=== PATIENT | male | born 1965 | race Caucasian/White ===

== ENCOUNTER 2019-08-15 08:02 | Day surgery (SDC) | payer MEDICAID ==
[~2019-08-15] VITALS: Ht 177.8 cm; Wt 75.6 kg
[2019-08-15 08:17] VITALS: BP 115/75
[2019-08-15] MEDS ORDERED: FURO-150 PO (08:34)
[2019-08-15] MEDS ORDERED: POTA8CAP20 PO (08:34)
[2019-08-15] MEDS ORDERED: PANT-47 PO (08:34)
[2019-08-15] MEDS ORDERED: MIDO5TAB4 PO (08:34)
[2019-08-15] MEDS ORDERED: SPIR25TA5 PO (08:34)
[2019-08-15] MEDS ORDERED: normal saline 1000ml 1,000 ML IV PRN (08:40)
[2019-08-15] MEDS ORDERED: albumin 25% 100mL bottle x 1 IV PRN (08:40)
[2019-08-15 13:57] VITALS: BP 106/75
== END 2019-08-15 11:02 | disposition home or self-care (01) ==
LOC: SSTAY O 08:02
PROVIDERS: ATTEND Radiology Vascular & Interventional Radiology
DX: K70.11 Alcoholic hepatitis with ascites (principal); K74.60 Unspecified cirrhosis of liver; K21.9 Gastro-esophageal reflux disease without esophagitis; Z91.030 Bee allergy status; Z79.899 Other long term (current) drug therapy; Z98.52 Vasectomy status
CPT/HCPCS: 49083; C1729; P9047

== ENCOUNTER 2019-08-29 08:22 | Day surgery (SDC) | payer MEDICAID ==
[~2019-08-29] VITALS: Ht 177.8 cm; Wt 69.0 kg
[~2019-08-29 08:22] MED LIST: FURO-150 PO; MIDO5TAB4 PO; PANT-47 PO; POTA8CAP20 PO; SPIR25TA5 PO
[2019-08-29] MEDS ORDERED: albumin 25% 100mL bottle x 1 IV PRN (08:50)
[2019-08-29] MEDS ORDERED: normal saline 1000ml 1,000 ML IV PRN (08:50)
[2019-08-29 08:54] VITALS: BP 99/66
== END 2019-08-29 09:20 | disposition home or self-care (01) ==
LOC: SSTAY O 08:22
PROVIDERS: ATTEND Radiology Diagnostic Radiology
DX: K70.11 Alcoholic hepatitis with ascites (principal); K21.9 Gastro-esophageal reflux disease without esophagitis; K74.60 Unspecified cirrhosis of liver; Z98.52 Vasectomy status; Z79.899 Other long term (current) drug therapy
CPT/HCPCS: 76705

== ENCOUNTER 2019-09-08 11:11 | Emergency (ER) | payer MEDICAID ==
[~2019-09-08] VITALS: Ht 180.3 cm; Wt 69.1 kg
[2019-09-08] MEDS ORDERED: normal saline 1000ML IV soln IVB ONE (12:25)
[2019-09-08 12:50] LABS: BASOPHILS # (AUTO) 0.2 X10'3 (0-0.2); EOSINOPHILS % (AUTO) 0.1 % (0-6); HEMATOCRIT 35.8 % (42.0-52.0); HEMOGLOBIN 11.8 g/dl (14.0-17.9); LYMPHOCYTES # (AUTO) 1.6 X10'3 (1.1-4.8); LYMPHOCYTES % (AUTO) 9.6 % (21-51); MEAN CORPUSCULAR HEMOGLOBIN 27.8 PG (27.0-31.0); MEAN CORPUSCULAR HGB CONC 33.1 g/dL (33.0-36.5); MEAN CORPUSCULAR VOLUME 84.1 FL (78-98); MONOCYTES # (AUTO) 1.2 X10'3 (0-0.9); MONOCYTES % (AUTO) 6.8 % (2-12); NEUTROPHILS % (AUTO) 82.5 % (42-75); PLATELET COUNT 551 X10'3 (140-440); RED BLOOD COUNT 4.25 X10'6 (4.70-6.10); RED CELL DISTRIBUTION WIDTH 15.9 % (11.5-14.5)
[2019-09-08 13:02] VITALS: BP 106/73
[2019-09-08 13:05] LABS: PARTIAL THROMBOPLASTIN TIME 32 SECONDS (22-32)
[2019-09-08 13:06] LABS: ALANINE AMINOTRANSFERASE 24 U/L (12-78); ALBUMIN 3.4 G/DL (3.4-5.0); ALBUMIN/GLOBULIN RATIO 0.6 (1.1-1.5); ALKALINE PHOSPHATASE 184 IU/L (46-116); ANION GAP 10 (8-16); ASPARTATE AMINO TRANSFERASE 39 U/L (10-37); BILIRUBIN,TOTAL 0.8 MG/DL (0.1-1.0); BLOOD UREA NITROGEN 28 MG/DL (7-18); BUN/CREATININE RATIO 20.4 (5.4-32.0); CALCIUM 10.9 MG/DL (8.5-10.1); CHLORIDE 104 MMOL/L (99-107); CREATININE 1.37 MG/DL (0.60-1.10); GLUCOSE 117 MG/DL (70-104); POTASSIUM 3.4 MMOL/L (3.5-5.1); SODIUM 141 MMOL/L (135-145); TOTAL CARBON DIOXIDE 26.8 MMOL/L (24-32); eGFR 54 ML/MIN
[2019-09-08] MEDS ORDERED: LIDOcaine Viscous 15ml cup ONE (13:06)
[2019-09-08] MEDS ORDERED: MIDAZolam 5mg/5ml vial ONE (13:06)
[2019-09-08] MEDS ORDERED: fentaNYL/PF 50MCG/1 ML 2ML syringe ONE (13:06)
--- NOTE | 2019-09-08 13:10 | NUR ---
Pt. in GI Lab
[2019-09-08 13:28] VITALS: BP 106/73
[2019-09-08 13:38] VITALS: BP 121/72
[2019-09-08 13:48] VITALS: BP 107/72
--- NOTE | 2019-09-08 13:57 | NUR ---
Pt. back from GI Lab
[2019-09-08 13:58] VITALS: BP 106/68
[2019-09-08] MEDS ORDERED: PANT20TA3 PO (14:18)
[2019-09-08 15:30] VITALS: BP 117/73
== END 2019-09-08 15:28 | disposition home or self-care (01) ==
LOC: ER 11:12
DX: T18.128A Food in esophagus causing other injury, initial encounter (principal); Z79.899 Other long term (current) drug therapy; Y92.89 Other specified places as the place of occurrence of the external cause
CPT/HCPCS: 36415; 43247; 80053; 85025; 85610; 85730; 99152; 99285; C1769; J2250; J3010; J7030; A4620

== ENCOUNTER 2019-10-28 07:25 | Day surgery (SDC) | payer MEDICAID ==
[~2019-10-28] VITALS: Ht 177.8 cm; Wt 77.1 kg
[~2019-10-28 07:25] MED LIST changes: +PANT20TA3 PO
[2019-10-28] MEDS ORDERED: normal saline 1000ml 1,000 ML IV SCH (07:50)
[2019-10-28 08:00] VITALS: BP 128/85
[2019-10-28 09:20] VITALS: BP 127/86
[2019-10-28 09:30] VITALS: BP 142/85
[2019-10-28 09:45] VITALS: BP 141/85
[2019-10-28 09:54] VITALS: BP 112/82
== END 2019-10-28 10:00 | disposition home or self-care (01) ==
LOC: U 07:25 → MED 3N 07:25 → U 10:00
PROVIDERS: ATTEND Radiology Diagnostic Radiology
DX: K70.31 Alcoholic cirrhosis of liver with ascites (principal); K70.11 Alcoholic hepatitis with ascites; K21.9 Gastro-esophageal reflux disease without esophagitis; Z98.52 Vasectomy status; Z79.899 Other long term (current) drug therapy
CPT/HCPCS: 49083; C1729

== ENCOUNTER 2019-11-22 08:27 | Day surgery (SDC) | payer MEDICAID ==
[~2019-11-22] VITALS: Ht 177.8 cm; Wt 77.3 kg
[~2019-11-22 08:27] MED LIST changes: -PANT20TA3 PO
[2019-11-22 08:35] VITALS: BP 123/77
[2019-11-22] MEDS ORDERED: fentaNYL/PF 50MCG/1 ML 2ML syringe ONE (09:03)
[2019-11-22] MEDS ORDERED: MIDAZolam 5mg/5ml vial ONE (09:03)
[2019-11-22] MEDS ORDERED: LIDOcaine Viscous 15ml cup ONE (09:04)
[2019-11-22 10:00] VITALS: BP 132/97
[2019-11-22 10:10] VITALS: BP 135/87
[2019-11-22 10:20] VITALS: BP 133/87
== END 2019-11-22 10:42 | disposition home or self-care (01) ==
LOC: GI LAB 08:27
PROVIDERS: ATTEND Internal Medicine Gastroenterology
DX: I85.00 Esophageal varices without bleeding (principal); K76.6 Portal hypertension; K31.89 Other diseases of stomach and duodenum; K44.9 Diaphragmatic hernia without obstruction or gangrene
CPT/HCPCS: 43244; 99152; J2250; J3010; J7040; A4620

== ENCOUNTER 2020-03-05 08:03 | Day surgery (SDC) | payer MEDICAID ==
[~2020-03-05] VITALS: Ht 179.1 cm; Wt 84.1 kg
[2020-03-05 08:10] VITALS: BP 123/82
[2020-03-05] MEDS ORDERED: LIDOcaine Viscous 15ml cup ONE (08:13)
[2020-03-05] MEDS ORDERED: fentaNYL/PF 50MCG/1 ML 2ML syringe ONE (08:13)
[2020-03-05] MEDS ORDERED: MIDAZolam 5mg/5ml vial ONE (08:13)
[2020-03-05 09:15] VITALS: BP 107/80
[2020-03-05 09:25] VITALS: BP 114/78
[2020-03-05 09:35] VITALS: BP 123/76
[2020-03-05 09:45] VITALS: BP 118/72
== END 2020-03-05 10:05 | disposition home or self-care (01) ==
LOC: GI LAB 08:03
PROVIDERS: ATTEND Internal Medicine Gastroenterology
DX: K22.8 Other specified diseases of esophagus (principal); K44.9 Diaphragmatic hernia without obstruction or gangrene; K76.6 Portal hypertension; K31.89 Other diseases of stomach and duodenum
CPT/HCPCS: 43235; 99152; J2250; J3010; J7040; A4620

== ENCOUNTER 2020-07-01 08:57 | Inpatient (IN) | payer MEDICAID ==
[~2020-07-01] VITALS: Ht 179.1 cm; Wt 96.7 kg
[2020-07-01] VITALS (16 sets, daily range): BP systolic 88–140; BP diastolic 68–106
[2020-07-01] MEDS ORDERED: morphine 4 MG/ML inj SYRINge IV ONE (09:10)
[2020-07-01] MEDS ORDERED: ondansetron/PF 4mg/2ml inj IV ONE (09:10)
[2020-07-01] MEDS ORDERED: normal saline 1000ML IV soln IV ONE (09:10)
[2020-07-01] MEDS ORDERED: piperacillin/tazo 3.375gm/50ml 50 ML IV ONE (09:10)
[2020-07-01 09:49] LABS: BASOPHILS # (AUTO) 0.1 X10'3 (0-0.2); BASOPHILS % (AUTO) 0.4 % (0-1); EOSINOPHILS % (AUTO) 0.1 % (0-6); HEMATOCRIT 41.7 % (42.0-52.0); LYMPHOCYTES # (AUTO) 1.3 X10'3 (1.1-4.8); LYMPHOCYTES % (AUTO) 8.1 % (21-51); MEAN CORPUSCULAR HEMOGLOBIN 31.8 PG (27.0-31.0); MEAN CORPUSCULAR HGB CONC 33.6 g/dL (33.0-36.5); MEAN CORPUSCULAR VOLUME 94.6 FL (78-98); MEAN PLATELET VOLUME 7.2 FL (7.4-10.4); MONOCYTES # (AUTO) 1.5 X10'3 (0-0.9); MONOCYTES % (AUTO) 9.7 % (2-12); NEUTROPHILS # (AUTO) 12.8 X10'3 (1.8-7.7); NEUTROPHILS % (AUTO) 81.7 % (42-75); PLATELET COUNT 471 X10'3 (140-440); RED BLOOD COUNT 4.41 X10'6 (4.70-6.10); RED CELL DISTRIBUTION WIDTH 16.2 % (11.5-14.5); WHITE BLOOD COUNT 15.6 X10'3 (4.5-11.0)
[2020-07-01 10:05] LABS: ALANINE AMINOTRANSFERASE 25 U/L (12-78); ALBUMIN 3.1 G/DL (3.4-5.0); ALBUMIN/GLOBULIN RATIO 0.6 (1.1-1.5); ALKALINE PHOSPHATASE 287 IU/L (46-116); ANION GAP 15 (8-16); ASPARTATE AMINO TRANSFERASE 29 U/L (10-37); BILIRUBIN,TOTAL 1.7 MG/DL (0.1-1.0); BLOOD UREA NITROGEN 18 MG/DL (7-18); BUN/CREATININE RATIO 13.5 (5.4-32.0); CALCIUM 9.3 MG/DL (8.5-10.1); CHLORIDE 97 MMOL/L (99-107); CREATININE 1.33 MG/DL (0.60-1.10); GLUCOSE 144 MG/DL (70-104); POTASSIUM 3.8 MMOL/L (3.5-5.1); SODIUM 133 MMOL/L (135-145); TOTAL CARBON DIOXIDE 21.5 MMOL/L (24-32); TOTAL PROTEIN 8.1 G/DL (6.4-8.2); eGFR 56 ML/MIN
--- NOTE | 2020-07-01 10:49 | NUR ---
re-wet abdominal dressing
[2020-07-01] MEDS ORDERED: potassium Cl 20 mEq SR tablet PO PRN ×2 (10:55)
[2020-07-01] MEDS ORDERED: ondansetron/PF 4mg/2ml inj IV PRN ×2 (10:55→12:20)
[2020-07-01] MEDS ORDERED: HYDROmorphone inj. 0.5 MG/0.5 ML DISP.SYRIN IV PRN (10:55)
[2020-07-01] MEDS ORDERED: potassium Cl 40MEQ/1/2NS 520ml 520 ML IV PRN ×2 (10:55)
[2020-07-01] MEDS ORDERED: magnesium 4gm in 100ml NS 100 ML IV PRN (10:55)
[2020-07-01] MEDS ORDERED: magnesium Cl slow-release 64mg tablet PO PRN (10:55)
[2020-07-01] MEDS ORDERED: morphine 2 MG/ML inj. syringe IV PRN ×2 (10:55→12:20)
[2020-07-01] MEDS ORDERED: acetaminophen 325mg tablet PO PRN (10:55)
[2020-07-01] MEDS ORDERED: magnesium 2GM in 50ml NS 50 ML IV PRN (10:55)
[2020-07-01] MEDS: normal saline 1000ml 1,000 ML IV SCH ×2 (11:46→23:45)
[2020-07-01] MEDS ORDERED: meperidine/PF 25mg/ml syringe IV PRN ×3 (12:20)
[2020-07-01] MEDS ORDERED: morphine 4 MG/ML inj SYRINge IV PRN (12:20)
[2020-07-01] MEDS ORDERED: ringers solution, lacted 1,000 ML IV SCH (12:20)
[2020-07-01] MEDS ORDERED: proCHLORperazine 10 MG/2 ml inj IV PRN (12:20)
[2020-07-01] MEDS ORDERED: MIDO10TA PO (12:34)
[2020-07-01] MEDS ORDERED: FURO20TA4 PO (12:34)
[2020-07-01] MEDS ORDERED: LORA10TA7 PO (12:34)
[2020-07-01] MEDS ORDERED: FLUT16SP26 BOTHNARES (12:34)
[2020-07-01] MEDS ORDERED: OMEP-50 PO (12:34)
[2020-07-01] MEDS ORDERED: sevoflurane 250ml liquid IH ONE (12:42)
[2020-07-01] MEDS ORDERED: fentaNYL/PF 50MCG/1 ML 2ML syringe ONE (12:43)
[2020-07-01] MEDS ORDERED: midazolam 2 mg/2 ml injection ONE (12:43)
[2020-07-01] MEDS ORDERED: propofol inj 20 ML IV ONE (12:43)
[2020-07-01] MEDS ORDERED: rocuronium 10mg/ml inj IV ONE (12:55)
[2020-07-01] MEDS ORDERED: ceFAZolin 1000mg inj ONE ×2 (12:56)
[2020-07-01] MEDS ORDERED: albumin (Human) 5% 250ml 250 ML IV ONE ×2 (13:17→13:26)
[2020-07-01] MEDS ORDERED: bacitracin 15gm ointment TP ONE (13:33)
[2020-07-01] MEDS ORDERED: neostigmine methylsulfate 1 MG/ML 10ml vial ONE (13:35)
[2020-07-01] MEDS ORDERED: glycopyrrolate 0.2mg/ml inj ONE (13:35)
--- NOTE | 2020-07-01 13:51 | NUR ---
Received from OR via SURGICAL BED , accompanied by Anesthesiologist ELISABETH and report given by Anesthesiolgist. PATIENT WITH 18G PIV IN LEFT UE RUNNING LR AT 100. ABDOMINAL BINDER PRESENT, LORETO TO RIGHT SIDE ABDOMEN. SCDS DONNED. ASCITIES FLUID COMING OUT FROM LORETO. MD HERRERA AWARE- SMALL LORETO SWAPPED OUT TO LARGER BULB VIA MD REQUEST. 10L MASK ON WITH 100% SATURATIONS. Addendum: 07/01/20 at 1402 by Tad Acevedo - MAIK PLEITEZ Amended: Links added.
--- NOTE | 2020-07-01 14:46 | NUR ---
PATIENT TAKEN TO WITH ALL BELONGINGS AND HOOKED UP TO MONITORS IN ROOM AND REPORT GIVEN TO RN WHO HAS TAKEN OVER PATIENT CARE. LARGE LORETO DRAIN INTACT AND DRAINING YELLOW TINTED ASCITIES FLUID. AWARE OF SAID DRAINAGE. VSS. PAIN AT A TOLERABLE LEVEL. ABDOMINAL BINDER INTACT WITH NO DRAINAGE PRESENT EXCEPT THAT OF THE LORETO DRAIN. RN AWARE. VSS. BED LOW AND CALL LIGHT PRESENT. Addendum: 07/01/20 at 1501 by Tad Chao RN, RN Amended: Links added.
[2020-07-01] MEDS ORDERED: ipratropium/albuterol 3ml nebule NEB PRN ×2 (15:05)
[2020-07-01] MEDS: HYDROcodone/acetaminophen 10/325mg tab PO PRN ×2 (17:18→23:44)
--- NOTE | 2020-07-01 18:52 | NUR ---
Patient in room [facility] 356. I have received report from MAIK Jorgensen and had the opportunity to ask questions and assume patient care.
--- NOTE | 2020-07-01 19:10 | NUR ---
pt alert and oriented no complaints. States feeling better minimal pain, abd binder inp place. robi lower abd fiordaliza logan under dressing, large jonh RLQ no drainage at this time, was emptied by nurseDebbie logan. b/p 92/77 Addendum: 07/01/20 at 1911 by Cristopher River RN Amended: Links added.
--- NOTE | 2020-07-01 19:21 | NUR ---
Gave report to Brain PLEITEZ.
[2020-07-01] MEDS: docusate sod 100mg capsule PO SCH (19:43)
[2020-07-01] MEDS: K and/or MAG REPLACEMENT MC SCH (20:00)
[2020-07-02 00:59] VITALS: BP 94/67
[2020-07-02 04:00] VITALS: BP 126/70
[2020-07-02 06:23] LABS: ALBUMIN 2.6 G/DL (3.4-5.0); ANION GAP 10 (8-16); BASOPHILS % (AUTO) 0.1 % (0-1); BLOOD UREA NITROGEN 12 MG/DL (7-18); BUN/CREATININE RATIO 10.3 (5.4-32.0); CHLORIDE 99 MMOL/L (99-107); CREATININE 1.17 MG/DL (0.60-1.10); EOSINOPHILS % (AUTO) 0 % (0-6); GLUCOSE 127 MG/DL (70-104); HEMATOCRIT 35.8 % (42.0-52.0); HEMOGLOBIN 11.9 g/dl (14.0-17.9); LYMPHOCYTES # (AUTO) 1.3 X10'3 (1.1-4.8); LYMPHOCYTES % (AUTO) 8.4 % (21-51); MAGNESIUM 1.7 MG/DL (1.5-2.4); MEAN CORPUSCULAR HEMOGLOBIN 31.7 PG (27.0-31.0); MEAN CORPUSCULAR HGB CONC 33.2 g/dL (33.0-36.5); MEAN CORPUSCULAR VOLUME 95.3 FL (78-98); MEAN PLATELET VOLUME 7.6 FL (7.4-10.4); MONOCYTES # (AUTO) 1.6 X10'3 (0-0.9); MONOCYTES % (AUTO) 10.3 % (2-12); NEUTROPHILS # (AUTO) 12.8 X10'3 (1.8-7.7); NEUTROPHILS % (AUTO) 81.2 % (42-75); PLATELET COUNT 426 X10'3 (140-440); POTASSIUM 4.2 MMOL/L (3.5-5.1); RED BLOOD COUNT 3.76 X10'6 (4.70-6.10); SODIUM 132 MMOL/L (135-145); TOTAL CARBON DIOXIDE 22.7 MMOL/L (24-32); WHITE BLOOD COUNT 15.7 X10'3 (4.5-11.0); eGFR 64 ML/MIN
--- NOTE | 2020-07-02 06:46 | NUR ---
Problems reprioritized. Patient report given, questions answered & plan of care reviewed with MAIK Park.
--- NOTE | 2020-07-02 07:03 | NUR ---
Patient in room [facility] 356. I have received report from Brain PLEITEZ and had the opportunity to ask questions and assume patient care.
[2020-07-02] MEDS ORDERED: pantoprazole 40 MG vial IV SCH (08:00)
[2020-07-02] MEDS ORDERED: furosemide 10 MG/1 ML 10ml inj IV SCH (08:00)
[2020-07-02] MEDS: K and/or MAG REPLACEMENT MC SCH (08:00)
[2020-07-02] MEDS: docusate sod 100mg capsule PO SCH (08:08)
--- NOTE | 2020-07-02 14:30 | NUR ---
Pt Dc to home with . Pt is A & O x4 and in no apparent distress. Pt verbalizes understanding of all DC orders. pt anxious to go home, distracted and looking at the clock while DC teachings. Pt states "yeah I understand". Pt educated on emptying his LORETO drain and hygienic process of caring for his wound. IV removed intact. Wound dressing D & I. Pt left in such a hurry left wound dressing supplies in the room. Pt educated on not showering for until 48 hrs after surgery and the importance of following up with doctors. Pt packed and carried his personal belongings home with him. Family member pick pt up. Pt wheeled to the front where he was picked up.
== END 2020-07-02 14:15 | disposition home or self-care (01) | DRG 227 ==
LOC: ER 08:58 → ED HOLD 10:55 → SUR 3N 15:03
PROVIDERS: ADMIT Internal Medicine; ATTEND Internal Medicine
PROC: 0WQF0ZZ Repair Abdominal Wall, Open Approach (ICD-10-PCS; principal; 2020-07-01 12:42)
DX: K42.1 Umbilical hernia with gangrene (principal); T81.31XA Disruption of external operation (surgical) wound, not elsewhere classified, initial encounter; D72.829 Elevated white blood cell count, unspecified; F17.210 Nicotine dependence, cigarettes, uncomplicated; I50.9 Heart failure, unspecified; J43.9 Emphysema, unspecified; K74.60 Unspecified cirrhosis of liver; N17.9 Acute kidney failure, unspecified; R18.8 Other ascites; Z82.5 Family history of asthma and other chronic lower respiratory diseases; Y83.8 Other surgical procedures as the cause of abnormal reaction of the patient, or of later complication, without mention of misadventure at the time of the procedure; Y92.89 Other specified places as the place of occurrence of the external cause; Z20.828 Contact with and (suspected) exposure to other viral communicable diseases
CPT/HCPCS: 36415; 71045; 80048; 80053; 83605; 83735; 84145; 85025; 85610; 86885; 86900; 86901; 87040; 87635; 93005; 93306; 94760; 96365; 99291; A4618; A6449; A7000; C9113; C9803; G0378; J0690; J1940; J2250; J2270; J2405; J2543; J2704; J2710; J3010; J3490; J7030; J7120; P9045

== ENCOUNTER 2021-03-30 08:55 | Day surgery (SDC) | payer MEDICAID ==
[~2021-03-30] VITALS: Ht 180.3 cm; Wt 100.0 kg
[~2021-03-30 08:55] MED LIST changes: +FLUT16SP26 BOTHNARES; -FURO-150 PO; +FURO20TA4 PO; +LORA10TA7 PO; +MIDO10TA PO; -MIDO5TAB4 PO; +OMEP-50 PO; -PANT-47 PO
[2021-03-30] MEDS ORDERED: LIDOcaine Viscous 15ml cup ONE (09:07)
[2021-03-30] MEDS ORDERED: fentaNYL/PF 50MCG/1 ML 2ML syringe ONE (09:07)
[2021-03-30] MEDS ORDERED: MIDAZolam 1 MG/ML 5ML VIAL ONE (09:07)
[2021-03-30 09:10] VITALS: BP 111/65
[2021-03-30] MEDS ORDERED: MONT10TA21 PO (09:29)
[2021-03-30] MEDS ORDERED: HYDR-4070 PO (09:29)
[2021-03-30 10:40] VITALS: BP 116/67
[2021-03-30 10:50] VITALS: BP 124/67
[2021-03-30 11:00] VITALS: BP 110/56
[2021-03-30 11:10] VITALS: BP 119/91
== END 2021-03-30 11:15 | disposition home or self-care (01) ==
LOC: GI LAB 08:55
PROVIDERS: ATTEND Internal Medicine Gastroenterology
DX: Z13.810 Encounter for screening for upper gastrointestinal disorder (principal); K44.9 Diaphragmatic hernia without obstruction or gangrene; K76.6 Portal hypertension; K31.89 Other diseases of stomach and duodenum; K22.8 Other specified diseases of esophagus; K74.60 Unspecified cirrhosis of liver; I50.9 Heart failure, unspecified; J44.9 Chronic obstructive pulmonary disease, unspecified; F17.210 Nicotine dependence, cigarettes, uncomplicated; Z72.89 Other problems related to lifestyle; Z79.899 Other long term (current) drug therapy
CPT/HCPCS: 43235; 99152; J2250; J3010; J7040; Z7512; A4620

== ENCOUNTER 2021-07-01 08:12 | Day surgery (SDC) | payer MEDICAID ==
[~2021-07-01] VITALS: Ht 177.8 cm; Wt 84.4 kg
[~2021-07-01 08:12] MED LIST changes: -FLUT16SP26 BOTHNARES; +HYDR-4070 PO; -MIDO10TA PO; +MONT10TA21 PO; -POTA8CAP20 PO
[2021-07-01 08:26] VITALS: BP 95/67
[2021-07-01] MEDS ORDERED: CHOL378P (08:32)
[2021-07-01] MEDS ORDERED: HYDR-3686 PO (08:32)
[2021-07-01] MEDS ORDERED: PERM60CR4 TOP (08:32)
[2021-07-01] MEDS ORDERED: albumin 25% 100mL bottle x 1 IV PRN (08:45)
[2021-07-01 10:25] VITALS: BP 99/62
[2021-07-01 10:45] VITALS: BP 95/65
[2021-07-01 11:00] VITALS: BP 101/65
[2021-07-01 11:15] VITALS: BP 99/62
[2021-07-01 11:30] VITALS: BP 98/81
== END 2021-07-01 13:15 | disposition home or self-care (01) ==
LOC: SSTAY O 08:12
PROVIDERS: ATTEND Preventive Medicine Aerospace Medicine
DX: R18.8 Other ascites (principal); R14.0 Abdominal distension (gaseous); K74.60 Unspecified cirrhosis of liver; J44.9 Chronic obstructive pulmonary disease, unspecified; I50.9 Heart failure, unspecified; F17.210 Nicotine dependence, cigarettes, uncomplicated; Z98.890 Other specified postprocedural states; Z79.899 Other long term (current) drug therapy; Z83.6 Family history of other diseases of the respiratory system
CPT/HCPCS: 49083

== ENCOUNTER 2021-10-14 14:19 | Inpatient (IN) | payer MEDICAID ==
[~2021-10-14] VITALS: Ht 177.8 cm; Wt 105.4 kg
--- NOTE | 2021-10-14 00:30 | NUR ---
Recieved report from supervisor [employer]. Pt transferred to cicu via gurney. pt was able to transfer self to bed.
[~2021-10-14 14:19] MED LIST changes: +CHOL378P13; +HYDR-3686 PO; -HYDR-4070 PO; -LORA10TA7 PO; -MONT10TA21 PO; -OMEP-50 PO; +OMEP20CA16 PO; +PERM60CR4 TOP
[2021-10-14] MEDS ORDERED: normal saline 1000ML IV soln IV ONE (15:35)
[2021-10-14] MEDS ORDERED: piperacillin/tazo 3.375gm/50ml 50 ML IV ONE (15:35)
[2021-10-14] MEDS ORDERED: IOHEXOL 12MG/ML oral solution 500 ML BOTTLE PO ONE (15:35)
[2021-10-14 16:10] LABS: BASOPHILS % (AUTO) 0.5 % (0-1); EOSINOPHILS # (AUTO) 0.1 X10'3 (0-0.9); EOSINOPHILS % (AUTO) 1.2 % (0-6); HEMOGLOBIN 9.5 g/dl (14.0-17.9); LYMPHOCYTES % (AUTO) 20.1 % (21-51); MEAN CORPUSCULAR HGB CONC 32.8 g/dL (33.0-36.5); MEAN CORPUSCULAR VOLUME 91.4 FL (78-98); MEAN PLATELET VOLUME 6.9 FL (7.4-10.4); MONOCYTES # (AUTO) 0.9 X10'3 (0-0.9); MONOCYTES % (AUTO) 19.3 % (2-12); NEUTROPHILS # (AUTO) 2.9 X10'3 (1.8-7.7); NEUTROPHILS % (AUTO) 58.9 % (42-75); PLATELET COUNT 205 X10'3 (140-440); RED BLOOD COUNT 3.17 X10'6 (4.70-6.10); WHITE BLOOD COUNT 4.9 X10'3 (4.5-11.0)
[2021-10-14 16:14] LABS: ALANINE AMINOTRANSFERASE 22 U/L (12-78); ALBUMIN 2.1 G/DL (3.4-5.0); ALBUMIN/GLOBULIN RATIO 0.5 (1.1-1.5); ALKALINE PHOSPHATASE 184 IU/L (46-116); ANION GAP 19 (8-16); ASPARTATE AMINO TRANSFERASE 37 U/L (10-37); BILIRUBIN,TOTAL 0.4 MG/DL (0.1-1.0); BLOOD UREA NITROGEN 70 MG/DL (7-18); BUN/CREATININE RATIO 10.6 (5.4-32.0); CALCIUM 7.3 MG/DL (8.5-10.1); CHLORIDE 100 MMOL/L (99-107); CREATININE 6.61 MG/DL (0.60-1.10); GLUCOSE 86 MG/DL (70-104); SODIUM 130 MMOL/L (135-145); TOTAL PROTEIN 6.6 G/DL (6.4-8.2); eGFR 9 ML/MIN
[2021-10-14 16:19] LABS: POTASSIUM 7.7 MMOL/L (3.5-5.1)
[2021-10-14 16:20] LABS: TOTAL CARBON DIOXIDE 11.3 MMOL/L (24-32)
[2021-10-14] MEDS ORDERED: albuterol 2.5 MG/3 ML nebule CONTNEB PRN (16:25)
[2021-10-14] MEDS ORDERED: sodium polystyrene sulfonate 15gm/60ml oral suspension PO ONE (16:25)
[2021-10-14] MEDS ORDERED: furosemide 10 MG/1 ML 10ml inj IV ONE (16:25)
[2021-10-14] MEDS ORDERED: potassium CL 10mEq/100ml bag 100 ML IV PRN (17:05)
[2021-10-14] MEDS ORDERED: magnesium 4gm in 100ml NS 100 ML IV PRN (17:05)
[2021-10-14] MEDS ORDERED: ondansetron/PF 4mg/2ml inj IV PRN (17:05)
[2021-10-14] MEDS ORDERED: magnesium 2GM in 50ml NS 50 ML IV PRN (17:05)
[2021-10-14] MEDS ORDERED: naloxone 0.4 mg/ml inj IV PRN (17:05)
[2021-10-14] MEDS ORDERED: potassium Cl 20 mEq SR tablet PO PRN ×2 (17:05)
[2021-10-14] MEDS ORDERED: magnesium Cl slow-release 64mg tablet PO PRN (17:05)
[2021-10-14] MEDS: normal saline 1000ml 1,000 ML IV SCH (17:05)
[2021-10-14] MEDS ORDERED: morphine 2 MG/ML inj. syringe IV PRN (17:05)
[2021-10-14] MEDS ORDERED: MONT-40 PO (17:14)
[2021-10-14] MEDS ORDERED: LORA10TA7 PO (17:14)
[2021-10-14] MEDS ORDERED: sodium bicarbonate (8.4%) inj. 100 MEQ in dextrose 5%-water 1,000 ML IV SCH (17:35)
[2021-10-14 17:57] LABS: MAGNESIUM 2.7 MG/DL (1.5-2.4)
[2021-10-14] MEDS ORDERED: sodium bicarbonate (8.4%) inj. 150 MEQ in dextrose 5%-water 1,000 ML IV SCH ×4 (18:20)
--- NOTE | 2021-10-14 18:57 | NUR ---
DAMIEN [phone] () PLEASE CALL BACK WHEN ABLE
[2021-10-14] MEDS: K and/or MAG REPLACEMENT MC SCH (20:00)
[2021-10-14 20:14] LABS: ALANINE AMINOTRANSFERASE 20 U/L (12-78); ALBUMIN/GLOBULIN RATIO 0.5 (1.1-1.5); ALKALINE PHOSPHATASE 174 IU/L (46-116); ANION GAP 15 (8-16); ASPARTATE AMINO TRANSFERASE 36 U/L (10-37); BILIRUBIN,TOTAL 0.4 MG/DL (0.1-1.0); BLOOD UREA NITROGEN 71 MG/DL (7-18); BUN/CREATININE RATIO 10.9 (5.4-32.0); CALCIUM 7.2 MG/DL (8.5-10.1); CHLORIDE 101 MMOL/L (99-107); CREATININE 6.51 MG/DL (0.60-1.10); GLUCOSE 107 MG/DL (70-104); SODIUM 128 MMOL/L (135-145); TOTAL PROTEIN 6.2 G/DL (6.4-8.2); eGFR 9 ML/MIN
[2021-10-14 20:17] LABS: POTASSIUM 7.2 MMOL/L (3.5-5.1)
[2021-10-14 20:18] LABS: TOTAL CARBON DIOXIDE 11.6 MMOL/L (24-32)
[2021-10-14] MEDS ORDERED: insulin regular, human 10 units/0.1 ml syringe IV ONE (21:15)
[2021-10-14] MEDS ORDERED: dextrose 50%-water 50ml dispensing syringe IV ONE (21:15)
[2021-10-14] MEDS ORDERED: SODIUM ZIRCONIUM CYCLOSILICATE 10 GM POWD.PACK PO SCH (21:30)
[2021-10-14] MEDS ORDERED: albuterol 2.5 MG/3 ML nebule CONTNEB ONE (21:30)
[2021-10-15] VITALS (24 sets, daily range): BP systolic 78–126; BP diastolic 40–77
[2021-10-15 00:16] LABS: BASOPHILS % (AUTO) 0.5 % (0-1); EOSINOPHILS % (AUTO) 0.7 % (0-6); HEMATOCRIT 24.6 % (42.0-52.0); HEMOGLOBIN 8.2 g/dl (14.0-17.9); LYMPHOCYTES # (AUTO) 0.9 X10'3 (1.1-4.8); MEAN CORPUSCULAR HEMOGLOBIN 30.5 PG (27.0-31.0); MEAN CORPUSCULAR HGB CONC 33.5 g/dL (33.0-36.5); MEAN CORPUSCULAR VOLUME 90.9 FL (78-98); MEAN PLATELET VOLUME 6.7 FL (7.4-10.4); MONOCYTES % (AUTO) 21.7 % (2-12); NEUTROPHILS # (AUTO) 2.5 X10'3 (1.8-7.7); NEUTROPHILS % (AUTO) 57.1 % (42-75); PLATELET COUNT 157 X10'3 (140-440); RED CELL DISTRIBUTION WIDTH 17.7 % (11.5-14.5); WHITE BLOOD COUNT 4.5 X10'3 (4.5-11.0)
[2021-10-15 00:25] LABS: ALBUMIN 1.8 G/DL (3.4-5.0); ANION GAP 18 (8-16); BLOOD UREA NITROGEN 67 MG/DL (7-18); BUN/CREATININE RATIO 10.4 (5.4-32.0); CALCIUM 6.7 MG/DL (8.5-10.1); CHLORIDE 101 MMOL/L (99-107); CREATININE 6.46 MG/DL (0.60-1.10); GLUCOSE 89 MG/DL (70-104); SODIUM 131 MMOL/L (135-145); eGFR 9 ML/MIN
[2021-10-15 00:27] LABS: POTASSIUM 6.5 MMOL/L (3.5-5.1); TOTAL CARBON DIOXIDE 12.3 MMOL/L (24-32)
[2021-10-15] MEDS ORDERED: LIDOcaine 2% 10ml TOPICAL JELLY (Urojet) MM ONE (01:25)
--- NOTE | 2021-10-15 01:30 | NUR ---
16 Fr F/c was inserted on the second attempt. The first attempt was met with resistance. a small amount of urine was visualized, and the blader scanner was not able to detect volume in the bladder. A small amount of bertrand blood noted around the meatus after insertion.
[2021-10-15] MEDS ORDERED: insulin regular, human U-100 3ml vial - multi-dose IV ONE (02:25)
[2021-10-15] MEDS ORDERED: dextrose 50%-water 50ml dispensing syringe IV ONE (02:25)
[2021-10-15] MEDS ORDERED: insulin regular, human 10 units/0.1 ml syringe IV ONE (02:40)
[2021-10-15] MEDS: normal saline 1000ml 1,000 ML IV SCH (03:05)
[2021-10-15 04:28] LABS: BASOPHILS % (AUTO) 0.5 % (0-1); EOSINOPHILS % (AUTO) 0.7 % (0-6); HEMATOCRIT 25.8 % (42.0-52.0); HEMOGLOBIN 8.5 g/dl (14.0-17.9); LYMPHOCYTES # (AUTO) 0.7 X10'3 (1.1-4.8); MEAN CORPUSCULAR HEMOGLOBIN 30.1 PG (27.0-31.0); MEAN CORPUSCULAR VOLUME 91.2 FL (78-98); MONOCYTES # (AUTO) 0.7 X10'3 (0-0.9); MONOCYTES % (AUTO) 16.9 % (2-12); NEUTROPHILS # (AUTO) 2.6 X10'3 (1.8-7.7); NEUTROPHILS % (AUTO) 64.9 % (42-75); PLATELET COUNT 172 X10'3 (140-440); RED BLOOD COUNT 2.83 X10'6 (4.70-6.10); RED CELL DISTRIBUTION WIDTH 18.8 % (11.5-14.5)
[2021-10-15 04:43] LABS: ALANINE AMINOTRANSFERASE 20 U/L (12-78); ALBUMIN 1.9 G/DL (3.4-5.0); ALBUMIN/GLOBULIN RATIO 0.5 (1.1-1.5); ALKALINE PHOSPHATASE 163 IU/L (46-116); ANION GAP 18 (8-16); ASPARTATE AMINO TRANSFERASE 34 U/L (10-37); BILIRUBIN,TOTAL 0.3 MG/DL (0.1-1.0); BLOOD UREA NITROGEN 67 MG/DL (7-18); BUN/CREATININE RATIO 10.5 (5.4-32.0); CALCIUM 6.8 MG/DL (8.5-10.1); CHLORIDE 101 MMOL/L (99-107); CREATININE 6.36 MG/DL (0.60-1.10); GLUCOSE 98 MG/DL (70-104); MAGNESIUM 2.4 MG/DL (1.5-2.4); POTASSIUM 5.7 MMOL/L (3.5-5.1); SODIUM 131 MMOL/L (135-145); TOTAL PROTEIN 6.1 G/DL (6.4-8.2); eGFR 9 ML/MIN
[2021-10-15 04:48] LABS: TOTAL CARBON DIOXIDE 11.9 MMOL/L (24-32)
[2021-10-15 05:06] LABS: ANISOCYTOSIS 2+; PLATELET ESTIMATE NORMAL
[2021-10-15 05:07] LABS: ELLIPTOCYTES FEW; POLYCHROMASIA FEW
[2021-10-15] MEDS: CALCIUM GLUC 1gm/50ml NACL,iso 50 ML IV SCH ×2 (05:35→05:58)
[2021-10-15 05:56] LABS: APTT 40 SECONDS (22-32)
--- NOTE | 2021-10-15 06:30 | NUR ---
Patient in room CICU 2010. I have received report from Alberto PLEITEZ and had the opportunity to ask questions and assume patient care.
[2021-10-15] MEDS ORDERED: albumin (human) 25% 100ml IV 100 ML IV PRN (06:35)
[2021-10-15] MEDS ORDERED: heparin 1,000 units/ml 10ml inj HE ONE ×2 (06:40)
[2021-10-15] MEDS: K and/or MAG REPLACEMENT MC SCH ×2 (07:37→20:00)
[2021-10-15] MEDS ORDERED: heparin, porcine 5000 units/ml vial SQ SCH (08:00)
[2021-10-15 09:01] LABS: PHOSPHORUS 10.1 MG/DL (2.3-4.5)
[2021-10-15] MEDS: piperacillin/tazo 3.375gm/50ml 50 ML IV SCH ×2 (10:16→20:45)
[2021-10-15] MEDS: diphenhydrAMINE 50 mg/ml inj IV PRN (10:50)
[2021-10-15 15:29] LABS: CLARITY,URINE TURBID (Clear); COLOR,URINE BROWN (Yellow)
[2021-10-15 15:33] LABS: UA COLLECTION TYPE NON-SPECIFIED
[2021-10-15 15:36] LABS: BACTERIA,URINE 1+ /HPF (Neg); MUCUS STRANDS MODERATE /LPF (Neg); RBC,URINE TNTC /HPF (0-2); RENAL CELLS, URINE MODERATE /HPF; SQUAMOUS EPITHELIAL CELL,UR NONE SEEN /LPF (FEW); WBC CLUMPS,URINE FEW /HPF (NEGATIVE); WBC,URINE TNTC /HPF (0-4)
[2021-10-15] MEDS: sodium bicarbonate (8.4%) inj. 150 MEQ in dextrose 5%-water 1,000 ML IV SCH (18:00)
--- NOTE | 2021-10-15 18:13 | NUR ---
Problems reprioritized. Patient report given, questions answered & plan of care reviewed with Alberto PLEITEZ.
--- NOTE | 2021-10-15 19:00 | NUR ---
Patient in room ICU 2037. I have received report from Tamy PLEITEZ and had the opportunity to ask questions and assume patient care.
[2021-10-15] MEDS: pantoprazole 40MG/NS 100ML BAG 100 ML IV SCH (20:26)
[2021-10-15 20:59] LABS: ALANINE AMINOTRANSFERASE 20 U/L (12-78); ALBUMIN 1.7 G/DL (3.4-5.0); ALBUMIN/GLOBULIN RATIO 0.4 (1.1-1.5); ALKALINE PHOSPHATASE 152 IU/L (46-116); ANION GAP 12 (8-16); ASPARTATE AMINO TRANSFERASE 29 U/L (10-37); BILIRUBIN,TOTAL 0.3 MG/DL (0.1-1.0); BLOOD UREA NITROGEN 50 MG/DL (7-18); BUN/CREATININE RATIO 9.4 (5.4-32.0); CALCIUM 6.9 MG/DL (8.5-10.1); CHLORIDE 102 MMOL/L (99-107); CREATININE 5.31 MG/DL (0.60-1.10); GLUCOSE 116 MG/DL (70-104); MAGNESIUM 2.2 MG/DL (1.5-2.4); PHOSPHORUS 8.3 MG/DL (2.3-4.5); POTASSIUM 5.8 MMOL/L (3.5-5.1); SODIUM 134 MMOL/L (135-145); TOTAL CARBON DIOXIDE 19.7 MMOL/L (24-32); TOTAL PROTEIN 5.7 G/DL (6.4-8.2); eGFR 11 ML/MIN
[2021-10-16] VITALS (24 sets, daily range): BP systolic 78–109; BP diastolic 37–75
[2021-10-16 04:10] LABS: BASOPHILS % (AUTO) 0.8 % (0-1); EOSINOPHILS # (AUTO) 0.1 X10'3 (0-0.9); EOSINOPHILS % (AUTO) 1.8 % (0-6); HEMATOCRIT 25.2 % (42.0-52.0); HEMOGLOBIN 8.4 g/dl (14.0-17.9); LYMPHOCYTES # (AUTO) 1.1 X10'3 (1.1-4.8); LYMPHOCYTES % (AUTO) 23.8 % (21-51); MEAN CORPUSCULAR HEMOGLOBIN 29.6 PG (27.0-31.0); MEAN CORPUSCULAR HGB CONC 33.3 g/dL (33.0-36.5); MEAN CORPUSCULAR VOLUME 88.9 FL (78-98); MEAN PLATELET VOLUME 7.1 FL (7.4-10.4); MONOCYTES # (AUTO) 0.8 X10'3 (0-0.9); MONOCYTES % (AUTO) 18.1 % (2-12); NEUTROPHILS # (AUTO) 2.5 X10'3 (1.8-7.7); NEUTROPHILS % (AUTO) 55.5 % (42-75); PLATELET COUNT 178 X10'3 (140-440); RED BLOOD COUNT 2.83 X10'6 (4.70-6.10); WHITE BLOOD COUNT 4.5 X10'3 (4.5-11.0)
[2021-10-16 04:38] LABS: ALANINE AMINOTRANSFERASE 18 U/L (12-78); ALBUMIN 1.6 G/DL (3.4-5.0); ALBUMIN/GLOBULIN RATIO 0.4 (1.1-1.5); ALKALINE PHOSPHATASE 149 IU/L (46-116); ANION GAP 12 (8-16); ASPARTATE AMINO TRANSFERASE 28 U/L (10-37); BILIRUBIN,TOTAL 0.4 MG/DL (0.1-1.0); BLOOD UREA NITROGEN 54 MG/DL (7-18); BUN/CREATININE RATIO 9.7 (5.4-32.0); CALCIUM 6.7 MG/DL (8.5-10.1); CHLORIDE 102 MMOL/L (99-107); CREATININE 5.59 MG/DL (0.60-1.10); GLUCOSE 93 MG/DL (70-104); LACTATE DEHYDROGENASE 150 U/L (85-227); MAGNESIUM 2.3 MG/DL (1.5-2.4); PHOSPHORUS 8.4 MG/DL (2.3-4.5); SODIUM 133 MMOL/L (135-145); TOTAL CARBON DIOXIDE 18.9 MMOL/L (24-32); TOTAL PROTEIN 5.7 G/DL (6.4-8.2); eGFR 11 ML/MIN
[2021-10-16 04:58] LABS: POTASSIUM 6.2 MMOL/L (3.5-5.1)
[2021-10-16 05:02] LABS: PLATELET ESTIMATE NORMAL; TOTAL CELLS COUNTED 100
[2021-10-16 05:03] LABS: ANISOCYTOSIS 1+; ELLIPTOCYTES FEW; POLYCHROMASIA FEW
[2021-10-16 05:04] LABS: SCHISTOCYTES FEW
[2021-10-16] MEDS: sodium bicarbonate (8.4%) inj. 150 MEQ in dextrose 5%-water 1,000 ML IV SCH (05:30)
--- NOTE | 2021-10-16 05:59 | NUR ---
Pt had a critical potassium of 6.2. Dr Dorado was notified. He said he would order an amp of D50 with 10 units insulin and some lokelma
--- NOTE | 2021-10-16 06:30 | NUR ---
Patient in room ICU 2037. I have received report from Alberto PLEITEZ and had the opportunity to ask questions and assume patient care.
[2021-10-16] MEDS ORDERED: dextrose 50%-water 50ml dispensing syringe IV ONE ×2 (06:35)
[2021-10-16] MEDS ORDERED: insulin regular, human 10 units/0.1 ml syringe IV ONE ×2 (06:35)
[2021-10-16] MEDS ORDERED: SODIUM ZIRCONIUM CYCLOSILICATE 10 GM POWD.PACK PO SCH (06:35)
[2021-10-16] MEDS ORDERED: SODIUM ZIRCONIUM CYCLOSILICATE 10 GM POWD.PACK PO ONE (08:00)
[2021-10-16] MEDS: K and/or MAG REPLACEMENT MC SCH ×2 (08:00→20:00)
[2021-10-16] MEDS: piperacillin/tazo 3.375gm/50ml 50 ML IV SCH ×2 (08:28→20:11)
[2021-10-16] MEDS: pantoprazole 40MG/NS 100ML BAG 100 ML IV SCH ×2 (08:28→20:11)
[2021-10-16 09:32] LABS: ALBUMIN 1.6 G/DL (3.4-5.0); ANION GAP 14 (8-16); BLOOD UREA NITROGEN 55 MG/DL (7-18); BUN/CREATININE RATIO 9.6 (5.4-32.0); CHLORIDE 100 MMOL/L (99-107); CREATININE 5.75 MG/DL (0.60-1.10); GLUCOSE 53 MG/DL (70-104); POTASSIUM 5.2 MMOL/L (3.5-5.1); SODIUM 132 MMOL/L (135-145); TOTAL CARBON DIOXIDE 18.4 MMOL/L (24-32); eGFR 10 ML/MIN
[2021-10-16] MEDS ORDERED: albumin (human) 25% 100ml IV 100 ML IV PRN (09:35)
[2021-10-16] MEDS ORDERED: normal saline 1000ml 250 ML IV PRN (09:35)
[2021-10-16] MEDS ORDERED: heparin 1,000 units/ml 10ml inj HE ONE ×2 (09:40)
[2021-10-16] MEDS ORDERED: heparin 1,000unit/ml 10ml vial 10 ML IV ONE (10:55)
[2021-10-16 13:57] LABS: HBSAG SCREEN Negative (Negative)
--- NOTE | 2021-10-16 17:21 | NUR ---
Alert & oriented. BP stable. On room air with sats in high 90's. No resp distress. Dialysis done. Able to remove 1 liter fluid. Urine remains scant and brown in color. Instructed patient on need for fluid restriction.
[2021-10-16 17:25] LABS: TOTAL PROTEIN,URINE RANDOM 3481.5 MG/DL
[2021-10-16 17:57] LABS: ALBUMIN 1.5 G/DL (3.4-5.0); ANION GAP 9 (8-16); BLOOD UREA NITROGEN 26 MG/DL (7-18); BUN/CREATININE RATIO 7.9 (5.4-32.0); CALCIUM 6.7 MG/DL (8.5-10.1); CHLORIDE 102 MMOL/L (99-107); CREATININE 3.31 MG/DL (0.60-1.10); GLUCOSE 98 MG/DL (70-104); PHOSPHORUS 4.2 MG/DL (2.3-4.5); POTASSIUM 4.2 MMOL/L (3.5-5.1); SODIUM 136 MMOL/L (135-145); TOTAL CARBON DIOXIDE 24.6 MMOL/L (24-32); eGFR 19 ML/MIN
--- NOTE | 2021-10-16 18:13 | NUR ---
Problems reprioritized. Patient report given, questions answered & plan of care reviewed with Alberto PLEITEZ.
[2021-10-17] VITALS (23 sets, daily range): BP systolic 75–132; BP diastolic 40–88
--- NOTE | 2021-10-17 06:00 | NUR ---
Patient in room ICU 2037. I have received report from Alberto PLEITEZ and had the opportunity to ask questions and assume patient care.
[2021-10-17 06:46] LABS: BASOPHILS % (AUTO) 0.6 % (0-1); EOSINOPHILS # (AUTO) 0.2 X10'3 (0-0.9); EOSINOPHILS % (AUTO) 3.8 % (0-6); HEMATOCRIT 23.5 % (42.0-52.0); HEMOGLOBIN 8.1 g/dl (14.0-17.9); LYMPHOCYTES # (AUTO) 1.4 X10'3 (1.1-4.8); LYMPHOCYTES % (AUTO) 31.3 % (21-51); MEAN CORPUSCULAR HEMOGLOBIN 30.8 PG (27.0-31.0); MEAN CORPUSCULAR HGB CONC 34.4 g/dL (33.0-36.5); MEAN CORPUSCULAR VOLUME 89.6 FL (78-98); MEAN PLATELET VOLUME 7.3 FL (7.4-10.4); MONOCYTES % (AUTO) 21.8 % (2-12); NEUTROPHILS # (AUTO) 1.9 X10'3 (1.8-7.7); NEUTROPHILS % (AUTO) 42.5 % (42-75); PLATELET COUNT 168 X10'3 (140-440); RED BLOOD COUNT 2.62 X10'6 (4.70-6.10); RED CELL DISTRIBUTION WIDTH 17.1 % (11.5-14.5); WHITE BLOOD COUNT 4.5 X10'3 (4.5-11.0)
[2021-10-17 06:58] LABS: ALANINE AMINOTRANSFERASE 15 U/L (12-78); ALBUMIN 1.4 G/DL (3.4-5.0); ALBUMIN/GLOBULIN RATIO 0.4 (1.1-1.5); ALKALINE PHOSPHATASE 141 IU/L (46-116); ANION GAP 12 (8-16); ASPARTATE AMINO TRANSFERASE 25 U/L (10-37); BILIRUBIN,TOTAL 0.4 MG/DL (0.1-1.0); BLOOD UREA NITROGEN 29 MG/DL (7-18); BUN/CREATININE RATIO 7.3 (5.4-32.0); CHLORIDE 100 MMOL/L (99-107); CREATININE 3.95 MG/DL (0.60-1.10); GLUCOSE 88 MG/DL (70-104); POTASSIUM 4.1 MMOL/L (3.5-5.1); SODIUM 135 MMOL/L (135-145); TOTAL CARBON DIOXIDE 23.3 MMOL/L (24-32); TOTAL PROTEIN 5.3 G/DL (6.4-8.2); eGFR 16 ML/MIN
[2021-10-17] MEDS: loratadine 10mg tablet PO SCH (07:51)
[2021-10-17] MEDS: hydrOXYzine 25 MG tablet PO SCH (07:51)
[2021-10-17] MEDS: pantoprazole 40MG/NS 100ML BAG 100 ML IV SCH ×2 (07:51→19:57)
[2021-10-17] MEDS: montelukast 10mg tablet PO SCH (07:51)
[2021-10-17] MEDS: piperacillin/tazo 3.375gm/50ml 50 ML IV SCH ×2 (07:52→19:57)
[2021-10-17] MEDS: K and/or MAG REPLACEMENT MC SCH ×2 (08:00→20:00)
[2021-10-17 08:50] LABS: ANISOCYTOSIS 1+; PLATELET ESTIMATE NORMAL; TOTAL CELLS COUNTED 100
--- NOTE | 2021-10-17 14:32 | NUR ---
Pt sleeping on BP cuff, normotensive when awake and sitting upright. Addendum: 10/17/21 at 1434 by Ariel CASTELLANOS Amended: Links added.
--- NOTE | 2021-10-17 18:25 | NUR ---
Problems reprioritized. Patient report given, questions answered & plan of care reviewed with Tad PLEITEZ.
[2021-10-18] VITALS (18 sets, daily range): BP systolic 88–124; BP diastolic 47–87
[2021-10-18 05:27] LABS: ANTISTREPTOLYSIN O AB 110.5 IU/mL (0.0-200.0); COMPLEMENT C3, SERUM 70 mg/dL (82-167); COMPLEMENT C4, SERUM 23 mg/dL (12-38)
[2021-10-18 05:39] LABS: BASOPHILS % (AUTO) 0.4 % (0-1); EOSINOPHILS # (AUTO) 0.4 X10'3 (0-0.9); EOSINOPHILS % (AUTO) 7.6 % (0-6); HEMATOCRIT 24.7 % (42.0-52.0); HEMOGLOBIN 8.1 g/dl (14.0-17.9); LYMPHOCYTES # (AUTO) 1.1 X10'3 (1.1-4.8); LYMPHOCYTES % (AUTO) 23.8 % (21-51); MEAN CORPUSCULAR HEMOGLOBIN 29.5 PG (27.0-31.0); MEAN CORPUSCULAR HGB CONC 32.9 g/dL (33.0-36.5); MEAN CORPUSCULAR VOLUME 89.7 FL (78-98); MEAN PLATELET VOLUME 7.1 FL (7.4-10.4); MONOCYTES # (AUTO) 0.9 X10'3 (0-0.9); MONOCYTES % (AUTO) 19.8 % (2-12); NEUTROPHILS # (AUTO) 2.2 X10'3 (1.8-7.7); NEUTROPHILS % (AUTO) 48.4 % (42-75); PLATELET COUNT 162 X10'3 (140-440); RED BLOOD COUNT 2.76 X10'6 (4.70-6.10); RED CELL DISTRIBUTION WIDTH 18.2 % (11.5-14.5); WHITE BLOOD COUNT 4.6 X10'3 (4.5-11.0)
[2021-10-18 05:56] LABS: ALANINE AMINOTRANSFERASE 17 U/L (12-78); ALBUMIN 1.3 G/DL (3.4-5.0); ALBUMIN/GLOBULIN RATIO 0.3 (1.1-1.5); ALKALINE PHOSPHATASE 121 IU/L (46-116); ANION GAP 8 (8-16); ASPARTATE AMINO TRANSFERASE 23 U/L (10-37); BILIRUBIN,TOTAL 0.4 MG/DL (0.1-1.0); BLOOD UREA NITROGEN 35 MG/DL (7-18); BUN/CREATININE RATIO 7.5 (5.4-32.0); CALCIUM 7.2 MG/DL (8.5-10.1); CHLORIDE 97 MMOL/L (99-107); CREATININE 4.69 MG/DL (0.60-1.10); GLUCOSE 86 MG/DL (70-104); MAGNESIUM 1.7 MG/DL (1.5-2.4); PHOSPHORUS 5.9 MG/DL (2.3-4.5); POTASSIUM 4.3 MMOL/L (3.5-5.1); SODIUM 127 MMOL/L (135-145); TOTAL CARBON DIOXIDE 22.4 MMOL/L (24-32); TOTAL PROTEIN 5.1 G/DL (6.4-8.2); eGFR 13 ML/MIN
[2021-10-18 05:59] LABS: % IRON SATURATION 46 % (11-46); IRON 45 UG/DL (53-167); TOTAL IRON BINDING CAPACITY 98 UG/DL (259-388)
--- NOTE | 2021-10-18 06:00 | NUR ---
Patient in room ICU 2037. I have received report from Tad PLEITEZ and had the opportunity to ask questions and assume patient care.
[2021-10-18 06:11] LABS: ANISOCYTOSIS 2+; BURR CELLS FEW; PLATELET ESTIMATE NORMAL; POLYCHROMASIA FEW; TOTAL CELLS COUNTED 100
[2021-10-18] MEDS: pantoprazole 40MG/NS 100ML BAG 100 ML IV SCH ×2 (07:21→20:06)
[2021-10-18] MEDS: piperacillin/tazo 3.375gm/50ml 50 ML IV SCH ×2 (07:25→21:12)
[2021-10-18] MEDS: montelukast 10mg tablet PO SCH (07:25)
[2021-10-18] MEDS: hydrOXYzine 25 MG tablet PO SCH (07:25)
[2021-10-18] MEDS: loratadine 10mg tablet PO SCH (07:25)
[2021-10-18] MEDS: diphenhydrAMINE 50 mg/ml inj IV PRN ×2 (07:31→20:39)
[2021-10-18] MEDS: K and/or MAG REPLACEMENT MC SCH ×2 (07:37→19:56)
[2021-10-18] MEDS: folic acid 1mg tablet PO SCH (10:57)
[2021-10-18] MEDS: thiamine 100mg tablet PO SCH (10:57)
[2021-10-18] MEDS: mineral oil/petrolatum, white cream 113gm jar TP SCH ×2 (14:13→21:12)
--- NOTE | 2021-10-18 15:14 | NUR ---
patient report called to Suzanne RN, pt to go to Rm 3014 A, room not ready will be notified when it is ready.
--- NOTE | 2021-10-18 16:39 | NUR ---
Pt transferred to 3014A with 2 bags of belongings, face to face with Argenis upon arrival.
--- NOTE | 2021-10-18 16:47 | NUR ---
Student documentation: I have reviewed and agree with all interventions, assessments performed and documented by Michael Student Nurse. Student Medication Administration: For this medication-pass time frame, all medication were reviewed, dispensed, administered and documented per hospital policy by Michael Sauer Nurse.
[2021-10-18 17:30] LABS: ANTINUCLEAR ANTIBODIES Negative (Negative)
--- NOTE | 2021-10-18 18:18 | NUR ---
Problems reprioritized. Patient report given, questions answered & plan of care reviewed with Mary PLEITEZ . Patient resting in bed in no acute distress.
--- NOTE | 2021-10-18 18:30 | NUR ---
Patient in room PCU 3014. I have received report from Lora PLEITEZ and had the opportunity to ask questions and assume patient care.
[2021-10-19] VITALS (7 sets, daily range): BP systolic 92–116; BP diastolic 43–70
[2021-10-19 06:29] LABS: BASOPHILS % (AUTO) 0.5 % (0-1); EOSINOPHILS # (AUTO) 0.4 X10'3 (0-0.9); EOSINOPHILS % (AUTO) 8.3 % (0-6); HEMATOCRIT 24.7 % (42.0-52.0); HEMOGLOBIN 8.4 g/dl (14.0-17.9); LYMPHOCYTES # (AUTO) 1.1 X10'3 (1.1-4.8); LYMPHOCYTES % (AUTO) 23.8 % (21-51); MEAN CORPUSCULAR HEMOGLOBIN 30.2 PG (27.0-31.0); MEAN CORPUSCULAR HGB CONC 33.8 g/dL (33.0-36.5); MEAN CORPUSCULAR VOLUME 89.2 FL (78-98); MONOCYTES % (AUTO) 20.8 % (2-12); NEUTROPHILS # (AUTO) 2.2 X10'3 (1.8-7.7); NEUTROPHILS % (AUTO) 46.6 % (42-75); PLATELET COUNT 166 X10'3 (140-440); RED BLOOD COUNT 2.77 X10'6 (4.70-6.10); RED CELL DISTRIBUTION WIDTH 17.5 % (11.5-14.5); WHITE BLOOD COUNT 4.7 X10'3 (4.5-11.0)
--- NOTE | 2021-10-19 06:30 | NUR ---
Problems reprioritized. Patient report given, questions answered & plan of care reviewed with Lora PLEITEZ.
[2021-10-19 06:38] LABS: ALANINE AMINOTRANSFERASE 15 U/L (12-78); ALBUMIN 1.3 G/DL (3.4-5.0); ALBUMIN/GLOBULIN RATIO 0.3 (1.1-1.5); ALKALINE PHOSPHATASE 116 IU/L (46-116); ANION GAP 9 (8-16); ASPARTATE AMINO TRANSFERASE 29 U/L (10-37); BILIRUBIN,TOTAL 0.4 MG/DL (0.1-1.0); BLOOD UREA NITROGEN 40 MG/DL (7-18); BUN/CREATININE RATIO 7.1 (5.4-32.0); CALCIUM 7.2 MG/DL (8.5-10.1); CHLORIDE 98 MMOL/L (99-107); CREATININE 5.62 MG/DL (0.60-1.10); GLUCOSE 75 MG/DL (70-104); PHOSPHORUS 6.4 MG/DL (2.3-4.5); POTASSIUM 4.8 MMOL/L (3.5-5.1); SODIUM 129 MMOL/L (135-145); TOTAL CARBON DIOXIDE 21.8 MMOL/L (24-32); TOTAL PROTEIN 5.1 G/DL (6.4-8.2); eGFR 11 ML/MIN
[2021-10-19 07:13] LABS: HEPATITIS C ANTIBODY <0.1 s/co ratio (0.0-0.9)
[2021-10-19] MEDS ORDERED: heparin 1,000 units/ml 10ml inj IV ONE (08:00)
[2021-10-19] MEDS ORDERED: heparin 1,000unit/ml 10ml vial 10 ML IV ONE (08:00)
[2021-10-19] MEDS: K and/or MAG REPLACEMENT MC SCH ×2 (08:00→20:00)
[2021-10-19] MEDS ORDERED: heparin 1,000 units/ml 10ml inj HE ONE ×2 (08:00→15:20)
--- NOTE | 2021-10-19 09:41 | NUR ---
Initial: Pt admitted w/ acute renal failure, hyperkalemia, metabolic acidosis, has been started on HD per EMR. Currently on Renal diet w/ mostly 100% intake of meals, partially meeting est protein needs. Will provide double protein BID to help meet needs while on HD. Last treatment 10/16 w/ 1L out per documentation. Pt may be a candidate for PD per MD note. LBM 10/18. Will continue to monitor. Recs: 1. Continue Renal diet as tolerated 2. Double protein BIDBD 3. Bowel care per rx 4. Scaled wts w/ HD Addendum: 10/19/21 at [address] Amended: Links added.
[2021-10-19] MEDS: montelukast 10mg tablet PO SCH (09:43)
[2021-10-19] MEDS: thiamine 100mg tablet PO SCH (09:43)
[2021-10-19] MEDS: folic acid 1mg tablet PO SCH (09:44)
[2021-10-19] MEDS: loratadine 10mg tablet PO SCH (09:44)
[2021-10-19] MEDS: piperacillin/tazo 3.375gm/50ml 50 ML IV SCH ×2 (09:44→21:11)
[2021-10-19] MEDS: pantoprazole 40MG/NS 100ML BAG 100 ML IV SCH (09:44)
[2021-10-19] MEDS: hydrOXYzine 25 MG tablet PO SCH (09:44)
[2021-10-19] MEDS: mineral oil/petrolatum, white cream 113gm jar TP SCH ×3 (09:52→23:00)
[2021-10-19] MEDS: pantoprazole 40mg Tablet.DR PO SCH (10:29)
[2021-10-19] MEDS ORDERED: diatrozoate meglu/diatrozoate sod (37% iodine) 120ML oral solution PO ONE (10:55)
[2021-10-19] MEDS ORDERED: diatr meglu/diatrizoate 30ml oral sol.-(3 dose) bottle PO ONE ×2 (11:27→13:00)
[2021-10-19] MEDS ORDERED: diatrozoate meglu/diatrozoate sod (37% iodine) 120ML oral solution PO SCH (11:30)
--- NOTE | 2021-10-19 11:54 | NUR ---
Gastrograffin first dose administered on time unable to scan before the computer had DC med .
[2021-10-19] MEDS: diatr meglu/diatrizoate 30ml oral sol.-(3 dose) bottle PO SCH ×2 (12:59→15:14)
[2021-10-19 18:06] LABS: ATYPICAL PANCA <1:20 titer (Neg:<1:20); CYTOPLASMIC (C-ANCA) <1:20 titer (Neg:<1:20); PERINUCLEAR (P-ANCA) <1:20 titer (Neg:<1:20)
--- NOTE | 2021-10-19 18:20 | NUR ---
[place] documentation: I have reviewed and agree with all interventions, assessments performed and documented by Joselo PLEITEZ . [place] Medication Administration: For this medication-pass time frame, all medication were reviewed, dispensed, administered and documented per hospital policy by Joselo PLEITEZ.
--- NOTE | 2021-10-19 18:20 | NUR ---
Problems reprioritized. Patient report given, questions answered & plan of care reviewed with BIJU PLEITEZ.
--- NOTE | 2021-10-19 18:25 | NUR ---
Patient in room PCU 3014. I have received report from Lora PLEITEZ and had the opportunity to ask questions and assume patient care.
[2021-10-19] MEDS: diphenhydrAMINE 50 mg/ml inj IV PRN (23:58)
[2021-10-20 02:00] VITALS: BP 91/49
--- NOTE | 2021-10-20 06:30 | NUR ---
Problems reprioritized. Patient report given, questions answered & plan of care reviewed with Tio PLEITEZ.
[2021-10-20 06:32] LABS: ALANINE AMINOTRANSFERASE 15 U/L (12-78); ALBUMIN 1.2 G/DL (3.4-5.0); ALBUMIN/GLOBULIN RATIO 0.3 (1.1-1.5); ALKALINE PHOSPHATASE 111 IU/L (46-116); ANION GAP 7 (8-16); ASPARTATE AMINO TRANSFERASE 28 U/L (10-37); BILIRUBIN,TOTAL 0.4 MG/DL (0.1-1.0); BLOOD UREA NITROGEN 30 MG/DL (7-18); BUN/CREATININE RATIO 6.5 (5.4-32.0); CALCIUM 7.1 MG/DL (8.5-10.1); CHLORIDE 102 MMOL/L (99-107); CREATININE 4.65 MG/DL (0.60-1.10); GLUCOSE 92 MG/DL (70-104); POTASSIUM 4.4 MMOL/L (3.5-5.1); SODIUM 134 MMOL/L (135-145); TOTAL CARBON DIOXIDE 24.7 MMOL/L (24-32); TOTAL PROTEIN 4.9 G/DL (6.4-8.2); eGFR 13 ML/MIN
[2021-10-20 07:00] VITALS: BP 92/60
[2021-10-20] MEDS: K and/or MAG REPLACEMENT MC SCH ×2 (08:00→20:00)
[2021-10-20] MEDS: loratadine 10mg tablet PO SCH (08:50)
[2021-10-20] MEDS: hydrOXYzine 25 MG tablet PO SCH (08:50)
[2021-10-20] MEDS: pantoprazole 40mg Tablet.DR PO SCH (08:50)
[2021-10-20] MEDS: piperacillin/tazo 3.375gm/50ml 50 ML IV SCH ×2 (08:51→20:55)
[2021-10-20] MEDS: montelukast 10mg tablet PO SCH (08:51)
[2021-10-20] MEDS: thiamine 100mg tablet PO SCH (08:54)
[2021-10-20] MEDS: folic acid 1mg tablet PO SCH (08:54)
[2021-10-20] MEDS: mineral oil/petrolatum, white cream 113gm jar TP SCH ×3 (08:54→20:56)
[2021-10-20 11:00] VITALS: BP 100/58
[2021-10-20 18:00] VITALS: BP 102/75
[2021-10-20] MEDS: diphenhydrAMINE 50 mg/ml inj IV PRN (21:03)
[2021-10-20 22:00] VITALS: BP 97/48
[2021-10-21] VITALS (10 sets, daily range): BP systolic 85–115; BP diastolic 49–73
--- NOTE | 2021-10-21 06:29 | NUR ---
Problems reprioritized. Patient report given, questions answered & plan of care reviewed with MAIK Roman.
--- NOTE | 2021-10-21 06:37 | NUR ---
Patient in room PCU 3014. I have received report from MAIK Rehman and had the opportunity to ask questions and assume patient care.
[2021-10-21] MEDS ORDERED: BUPIVAcaine 0.5% inj/PF 30 ML ONE (07:06)
[2021-10-21] MEDS ORDERED: heparin sodium, porcine/PF 100unit/ml 5ML syringe ONE (07:06)
[2021-10-21] MEDS ORDERED: mupirocin 2% ointment 22GM ONE (07:06)
--- NOTE | 2021-10-21 07:28 | NUR ---
Pt transferred to OR at 0720 on hospital bed. Report called to Michelle PLEITEZ in recovery. Pre-op accucheck 78. Belongings left in room 9387X.
[2021-10-21 07:56] LABS: HEMATOCRIT 24.5 % (42.0-52.0); HEMOGLOBIN 8.1 g/dl (14.0-17.9); MEAN CORPUSCULAR HEMOGLOBIN 29.6 PG (27.0-31.0); MEAN CORPUSCULAR HGB CONC 33.2 g/dL (33.0-36.5); MEAN CORPUSCULAR VOLUME 89.3 FL (78-98); MEAN PLATELET VOLUME 7.2 FL (7.4-10.4); PLATELET COUNT 175 X10'3 (140-440); RED BLOOD COUNT 2.74 X10'6 (4.70-6.10); RED CELL DISTRIBUTION WIDTH 17.7 % (11.5-14.5); WHITE BLOOD COUNT 6.3 X10'3 (4.5-11.0)
[2021-10-21] MEDS ORDERED: heparin 1,000 units/ml 10ml inj HE ONE ×2 (08:00→10:20)
[2021-10-21] MEDS: loratadine 10mg tablet PO SCH (08:00)
[2021-10-21] MEDS ORDERED: normal saline 1000ml 100 ML IV PRN (08:00)
[2021-10-21] MEDS: K and/or MAG REPLACEMENT MC SCH ×2 (08:00→20:00)
[2021-10-21] MEDS ORDERED: EPOETIN ALFA-EPBX 20,000 UNIT/ML 1 ML MDV IV ONE (08:00)
[2021-10-21] MEDS: mineral oil/petrolatum, white cream 113gm jar TP SCH ×3 (08:00→20:00)
[2021-10-21] MEDS: piperacillin/tazo 3.375gm/50ml 50 ML IV SCH ×2 (08:00→19:59)
[2021-10-21] MEDS ORDERED: sevoflurane 250ml liquid IH ONE (08:19)
[2021-10-21] MEDS ORDERED: FENTANYL CITRATE/PF 50 MCG/1 ML VIAL ONE (08:20)
[2021-10-21] MEDS ORDERED: midazolam 1 mg/ML 2ml injection ONE (08:20)
--- NOTE | 2021-10-21 09:06 | NUR ---
Received from OR via BED , accompanied by Anesthesiologist GUNJAN and report given by Anesthesiolgist. PATIENT WITH ONE LAP SITE AT EPIGASTRIC AREA. DERMABONDED CLOSED WITH NO DRAINAGE PRESENT. VSS. 10L MASK ON 100% SATURATION. Addendum: 10/21/21 at 0921 by Tad Chao RN, RN Amended: Links added.
[2021-10-21] MEDS ORDERED: propofol inj 20 ML IV ONE (09:07)
[2021-10-21] MEDS ORDERED: albumin (Human) 5% 250ml 250 ML IV ONE (09:07)
[2021-10-21] MEDS ORDERED: rocuronium 10mg/ml inj IV ONE (09:07)
[2021-10-21] MEDS ORDERED: glycopyrrolate 0.2mg/ml inj ONE (09:07)
[2021-10-21] MEDS ORDERED: neostigmine methylsulfate 1 MG/ML 10ml vial ONE (09:07)
[2021-10-21] MEDS ORDERED: ondansetron/PF 4mg/2ml inj ONE (09:07)
[2021-10-21] MEDS ORDERED: LIDOcaine 2% (20mg/ml) 5ml vial ONE (09:07)
[2021-10-21] MEDS ORDERED: phenylephrine 10mg/ml inj. ONE (09:08)
[2021-10-21] MEDS ORDERED: HYDROmorphone/PF 0.2 MG/ML SYRINGE IV PRN (09:15)
[2021-10-21] MEDS ORDERED: morphine 2 MG/ML inj. syringe IV PRN (09:15)
[2021-10-21] MEDS ORDERED: ringers solution, lacted 1,000 ML IV SCH (09:15)
[2021-10-21] MEDS ORDERED: ondansetron/PF 4mg/2ml inj IV PRN (09:15)
--- NOTE | 2021-10-21 09:36 | NUR ---
PATIENT HAS MET ALL CRITERIA FOR TRANSFER TO THE PCU FLOOR. VSS. DRESSINGS INTACT. BED LOW, CALL LIGHT PRESENT AND 2 RAILS UP. RN PRESENT TO ACCEPT CARE OF PATIENT AND REPORT HAS BEEN CALLED. PALL QUESTIONS ANSWERED TO ACCEPTING RN. VSS, ALL BELONGINGS IN PATIENT ROOM Addendum: 10/21/21 at 0946 by Tad Chao RN, RN Amended: Links added.
--- NOTE | 2021-10-21 09:44 | NUR ---
Pt returned to PCU from OR, on hospital bed. Report received from MAIK Mishra in recovery.
--- NOTE | 2021-10-21 10:00 | NUR ---
This RN was informed during report that Dr Rodriguez was unable to place peritoneal dialysis catheter D/T adhesions. Ayaka PLEITEZ from IR notified, hospitalist, Dr Daley, notified, as well as Jennifer, upper caser notified.
[2021-10-21] MEDS: thiamine 100mg tablet PO SCH (11:18)
[2021-10-21] MEDS: diphenhydrAMINE 50 mg/ml inj IV PRN ×2 (11:18→20:14)
[2021-10-21] MEDS: hydrOXYzine 25 MG tablet PO SCH (11:18)
[2021-10-21] MEDS: folic acid 1mg tablet PO SCH (11:18)
[2021-10-21] MEDS: montelukast 10mg tablet PO SCH (11:18)
[2021-10-21] MEDS: pantoprazole 40mg Tablet.DR PO SCH (11:18)
--- NOTE | 2021-10-21 11:26 | NUR ---
Pt NPO for OR for 0800 meds. Claritin non-administered prior to HD, after coming back from OR, D/T pt receiving dose of Benadryl 50mg IV for itching. Will continue to monitor.
--- NOTE | 2021-10-21 11:48 | NUR ---
No labs drawn or ordered for 10/21
--- NOTE | 2021-10-21 18:07 | NUR ---
Problems reprioritized. Patient report given, questions answered & plan of care reviewed with MAIK Rehman.
[2021-10-22] VITALS (7 sets, daily range): BP systolic 77–112; BP diastolic 39–70
[2021-10-22] MEDS: diphenhydrAMINE 50 mg/ml inj IV PRN ×2 (02:04→17:00)
--- NOTE | 2021-10-22 06:26 | NUR ---
Problems reprioritized. Patient report given, questions answered & plan of care reviewed with MAIK Rodriguez.
[2021-10-22 06:32] LABS: BASOPHILS % (AUTO) 0.5 % (0-1); EOSINOPHILS # (AUTO) 0.5 X10'3 (0-0.9); EOSINOPHILS % (AUTO) 6.3 % (0-6); HEMOGLOBIN 7.7 g/dl (14.0-17.9); LYMPHOCYTES # (AUTO) 1.3 X10'3 (1.1-4.8); LYMPHOCYTES % (AUTO) 17.1 % (21-51); MEAN CORPUSCULAR HGB CONC 33.5 g/dL (33.0-36.5); MEAN CORPUSCULAR VOLUME 89.6 FL (78-98); MEAN PLATELET VOLUME 7.1 FL (7.4-10.4); MONOCYTES # (AUTO) 1.1 X10'3 (0-0.9); MONOCYTES % (AUTO) 14.6 % (2-12); NEUTROPHILS # (AUTO) 4.6 X10'3 (1.8-7.7); NEUTROPHILS % (AUTO) 61.5 % (42-75); PLATELET COUNT 176 X10'3 (140-440); RED BLOOD COUNT 2.57 X10'6 (4.70-6.10); RED CELL DISTRIBUTION WIDTH 17.7 % (11.5-14.5); WHITE BLOOD COUNT 7.4 X10'3 (4.5-11.0)
[2021-10-22 07:10] LABS: ALANINE AMINOTRANSFERASE 16 U/L (12-78); ALBUMIN 1.3 G/DL (3.4-5.0); ALBUMIN/GLOBULIN RATIO 0.3 (1.1-1.5); ALKALINE PHOSPHATASE 95 IU/L (46-116); ANION GAP 5 (8-16); ASPARTATE AMINO TRANSFERASE 24 U/L (10-37); BILIRUBIN,TOTAL 0.4 MG/DL (0.1-1.0); BLOOD UREA NITROGEN 22 MG/DL (7-18); BUN/CREATININE RATIO 4.9 (5.4-32.0); CALCIUM 7.3 MG/DL (8.5-10.1); CHLORIDE 100 MMOL/L (99-107); CREATININE 4.51 MG/DL (0.60-1.10); GLUCOSE 85 MG/DL (70-104); POTASSIUM 4.8 MMOL/L (3.5-5.1); SODIUM 132 MMOL/L (135-145); TOTAL CARBON DIOXIDE 26.6 MMOL/L (24-32); TOTAL PROTEIN 5.2 G/DL (6.4-8.2); eGFR 14 ML/MIN
[2021-10-22] MEDS: montelukast 10mg tablet PO SCH (08:00)
[2021-10-22] MEDS: mineral oil/petrolatum, white cream 113gm jar TP SCH ×3 (08:00→21:19)
[2021-10-22] MEDS: loratadine 10mg tablet PO SCH (08:00)
[2021-10-22] MEDS: folic acid 1mg tablet PO SCH (08:00)
[2021-10-22] MEDS: K and/or MAG REPLACEMENT MC SCH ×2 (08:00→20:00)
[2021-10-22] MEDS: thiamine 100mg tablet PO SCH (08:00)
[2021-10-22] MEDS: pantoprazole 40mg Tablet.DR PO SCH (08:00)
--- NOTE | 2021-10-22 08:07 | NUR ---
MD griffin, 2420W([place]) BP 77/39. NPO. Pt appears in no distress. MD orosco.
--- NOTE | 2021-10-22 08:18 | NUR ---
MD griffin. Went into pts room, pt states someone gave him a breakfast tray and he ate. NPO sign posted on door. Pt aware of NPO status.
[2021-10-22] MEDS: piperacillin/tazo 3.375gm/50ml 50 ML IV SCH (08:29)
[2021-10-22] MEDS ORDERED: albumin (Human) 5% 250ml 250 ML IV ONE (08:30)
[2021-10-22 08:46] LABS: HEP B CORE AB, TOT Negative (Negative)
[2021-10-22] MEDS ORDERED: fentaNYL/PF 50MCG/1 ML 2ML syringe ONE (10:14)
[2021-10-22] MEDS ORDERED: LIDOCAINE 1% w/preservative (10 MG/ML) inj. 10mL VIAL ONE (10:14)
[2021-10-22] MEDS ORDERED: heparin 1,000unit/ml 10ml vial 10 ML ONE (10:14)
[2021-10-22] MEDS ORDERED: diphenhydrAMINE 50 mg/ml inj ONE (10:58)
[2021-10-22] MEDS: hydrOXYzine 25 MG tablet PO SCH (12:25)
--- NOTE | 2021-10-22 15:12 | NUR ---
MD notified, pt reports 7/10 pain from HD cath site. BP 100/57. See new MD orders
[2021-10-22] MEDS ORDERED: HYDROcodone/acetaminophen 10/325mg tab PO PRN (15:25)
[2021-10-22] MEDS: HYDROcodone/acetaminophen 5mg/325mg tablet PO PRN ×2 (15:49→22:59)
[2021-10-23] MEDS: diphenhydrAMINE 50 mg/ml inj IV PRN ×3 (00:43→16:07)
[2021-10-23 02:00] VITALS: BP 90/49
[2021-10-23 06:00] VITALS: BP 106/57
--- NOTE | 2021-10-23 06:20 | NUR ---
Problems reprioritized. Patient report given, questions answered & plan of care reviewed with Guerda PLEITEZ . Addendum: 10/23/21 at 0620 by Yeni Tijerina RN Amended: Links added.
[2021-10-23] MEDS: thiamine 100mg tablet PO SCH (07:05)
[2021-10-23] MEDS: loratadine 10mg tablet PO SCH (07:05)
[2021-10-23] MEDS: folic acid 1mg tablet PO SCH (07:05)
[2021-10-23] MEDS: montelukast 10mg tablet PO SCH (07:05)
[2021-10-23] MEDS: hydrOXYzine 25 MG tablet PO SCH (07:05)
[2021-10-23] MEDS: pantoprazole 40mg Tablet.DR PO SCH (07:05)
[2021-10-23] MEDS: HYDROcodone/acetaminophen 5mg/325mg tablet PO PRN ×2 (07:06→16:07)
[2021-10-23] MEDS ORDERED: heparin 1,000 units/ml 10ml inj IV ONE (08:00)
[2021-10-23] MEDS: K and/or MAG REPLACEMENT MC SCH (08:00)
[2021-10-23] MEDS ORDERED: heparin 1,000 units/ml 10ml inj HE ONE ×3 (08:00→10:05)
[2021-10-23] MEDS ORDERED: heparin 1,000unit/ml 10ml vial 10 ML IV ONE ×2 (08:00→09:55)
[2021-10-23 08:37] LABS: BASOPHILS % (AUTO) 0.6 % (0-1); EOSINOPHILS # (AUTO) 0.5 X10'3 (0-0.9); EOSINOPHILS % (AUTO) 6.2 % (0-6); HEMATOCRIT 24.1 % (42.0-52.0); HEMOGLOBIN 8.1 g/dl (14.0-17.9); LYMPHOCYTES # (AUTO) 1.4 X10'3 (1.1-4.8); LYMPHOCYTES % (AUTO) 18.7 % (21-51); MEAN CORPUSCULAR HEMOGLOBIN 30.1 PG (27.0-31.0); MEAN CORPUSCULAR HGB CONC 33.8 g/dL (33.0-36.5); MEAN CORPUSCULAR VOLUME 89.2 FL (78-98); MEAN PLATELET VOLUME 7.2 FL (7.4-10.4); MONOCYTES % (AUTO) 13.6 % (2-12); NEUTROPHILS # (AUTO) 4.6 X10'3 (1.8-7.7); NEUTROPHILS % (AUTO) 60.9 % (42-75); PLATELET COUNT 203 X10'3 (140-440); RED CELL DISTRIBUTION WIDTH 17.6 % (11.5-14.5); WHITE BLOOD COUNT 7.5 X10'3 (4.5-11.0)
[2021-10-23] MEDS: mineral oil/petrolatum, white cream 113gm jar TP SCH ×2 (08:42→13:00)
[2021-10-23 08:50] LABS: ALANINE AMINOTRANSFERASE 14 U/L (12-78); ALBUMIN 1.4 G/DL (3.4-5.0); ALBUMIN/GLOBULIN RATIO 0.4 (1.1-1.5); ALKALINE PHOSPHATASE 97 IU/L (46-116); ANION GAP 7 (8-16); ASPARTATE AMINO TRANSFERASE 26 U/L (10-37); BILIRUBIN,TOTAL 0.5 MG/DL (0.1-1.0); BLOOD UREA NITROGEN 28 MG/DL (7-18); BUN/CREATININE RATIO 4.8 (5.4-32.0); CALCIUM 7.4 MG/DL (8.5-10.1); CHLORIDE 96 MMOL/L (99-107); CREATININE 5.85 MG/DL (0.60-1.10); GLUCOSE 70 MG/DL (70-104); POTASSIUM 4.9 MMOL/L (3.5-5.1); SODIUM 126 MMOL/L (135-145); TOTAL CARBON DIOXIDE 23.1 MMOL/L (24-32); TOTAL PROTEIN 5.3 G/DL (6.4-8.2); eGFR 10 ML/MIN
[2021-10-23] MEDS ORDERED: albumin (human) 25% 100ml IV 100 ML IV PRN (09:55)
--- NOTE | 2021-10-23 10:38 | NUR ---
Took over pt care over from Guerda PLEITEZ.
--- NOTE | 2021-10-23 10:56 | NUR ---
Pt HR is dropping into the 40's and high 30's. aware. WCTM and possibly hold 1400 Cardizem Addendum: 10/23/21 at 1540 by Alexander Zhou RN note written on wrong pt.
[2021-10-23] MEDS ORDERED: CALC667T6 PO (11:11)
--- NOTE | 2021-10-23 17:00 | NUR ---
Per orders, pt D/C. Pt education provided and questions answers. Pt will follow up with [facility] for dialysis on monday. Tele and IV removed. Pt escorted out by PHERESIS SPECIALIST via wheelchair.
== END 2021-10-23 17:07 | disposition home or self-care (01) | DRG 710 ==
LOC: ER 14:20 → ED HOLD 17:09 → UNDOADMIN 17:09 → ED HOLD 21:20 → CICU 2S 23:57 → ICU 2S 10-15 17:35 → PCU 3S 10-18 16:30
PROVIDERS: ADMIT Internal Medicine; ATTEND Family Medicine
PROC: 06HY33Z Insertion of Infusion Device into Lower Vein, Percutaneous Approach (ICD-10-PCS; 2021-10-15)
PROC: 5A1D70Z Performance of Urinary Filtration, Intermittent, Less than 6 Hours Per Day (ICD-10-PCS; 2021-10-15)
PROC: 5A1D70Z Performance of Urinary Filtration, Intermittent, Less than 6 Hours Per Day (ICD-10-PCS; 2021-10-16)
PROC: 5A1D70Z Performance of Urinary Filtration, Intermittent, Less than 6 Hours Per Day (ICD-10-PCS; 2021-10-19)
PROC: 5A1D70Z Performance of Urinary Filtration, Intermittent, Less than 6 Hours Per Day (ICD-10-PCS; 2021-10-21)
PROC: 0WJG4ZZ Inspection of Peritoneal Cavity, Percutaneous Endoscopic Approach (ICD-10-PCS; principal; 2021-10-21 08:19)
PROC: 0JH63XZ Insertion of Tunneled Vascular Access Device into Chest Subcutaneous Tissue and Fascia, Percutaneous Approach (ICD-10-PCS; 2021-10-22)
PROC: 02HV33Z Insertion of Infusion Device into Superior Vena Cava, Percutaneous Approach (ICD-10-PCS; 2021-10-22)
PROC: B548ZZA Ultrasonography of Superior Vena Cava, Guidance (ICD-10-PCS; 2021-10-22)
PROC: 5A1D70Z Performance of Urinary Filtration, Intermittent, Less than 6 Hours Per Day (ICD-10-PCS; 2021-10-23)
DX: A41.9 Sepsis, unspecified organism (principal); J96.00 Acute respiratory failure, unspecified whether with hypoxia or hypercapnia; N17.0 Acute kidney failure with tubular necrosis; E87.2 Acidosis; D63.8 Anemia in other chronic diseases classified elsewhere; E83.39 Other disorders of phosphorus metabolism; E87.1 Hypo-osmolality and hyponatremia; K70.31 Alcoholic cirrhosis of liver with ascites; I95.9 Hypotension, unspecified; E87.5 Hyperkalemia; F17.210 Nicotine dependence, cigarettes, uncomplicated; I50.9 Heart failure, unspecified; J44.9 Chronic obstructive pulmonary disease, unspecified; K52.9 Noninfective gastroenteritis and colitis, unspecified; Z20.822 Contact with and (suspected) exposure to COVID-19; N18.6 End stage renal disease; K66.0 Peritoneal adhesions (postprocedural) (postinfection); K76.6 Portal hypertension; R65.20 Severe sepsis without septic shock; E66.01 Morbid (severe) obesity due to excess calories; F12.90 Cannabis use, unspecified, uncomplicated; K72.90 Hepatic failure, unspecified without coma; R34 Anuria and oliguria; Z82.5 Family history of asthma and other chronic lower respiratory diseases; Z68.33 Body mass index [BMI] 33.0-33.9, adult; Z79.899 Other long term (current) drug therapy
CPT/HCPCS: 36415; 36558; 71045; 71250; 74176; 76937; 77001; 80048; 80053; 80069; 81001; 82103; 82570; 82948; 83540; 83550; 83605; 83615; 83735; 84100; 84133; 84145; 84156; 84300; 84540; 85007; 85008; 85025; 85027; 85610; 85730; 86038; 86060; 86160; 86256; 86704; 86706; 86803; 87040; 87081; 87088; 87207; 87340; 87635; 93005; 94640; 97110; 97116; 97161; 97530; 99291; 99292; A4215; A4618; A7000; A7015; C1750; C1769; C1894; C9113; G0257; G0378; J0610; J1200; J1642; J1644; J1815; J1940; J2150; J2250; J2370; J2405; J2543; J2704; J2710; J3010; J3490; J7030; J7070; P9045; Q0177; Q4081; Q9963; S0020

== ENCOUNTER 2021-12-10 17:23 | Inpatient (IN) | payer MEDICARE, MEDICAID ==
[~2021-12-10] VITALS: Ht 177.8 cm; Wt 76.2 kg
[~2021-12-10 17:23] MED LIST changes: +CALC667T6 PO; -FURO20TA4 PO; +LORA10TA7 PO; +MONT-40 PO; -PERM60CR4 TOP; -SPIR25TA5 PO
[2021-12-10 18:33] LABS: BASOPHILS # (AUTO) 0.1 X10'3 (0-0.2); BASOPHILS % (AUTO) 0.8 % (0-1); EOSINOPHILS # (AUTO) 0.2 X10'3 (0-0.9); EOSINOPHILS % (AUTO) 2.3 % (0-6); HEMATOCRIT 25.2 % (42.0-52.0); HEMOGLOBIN 8.5 g/dl (14.0-17.9); LYMPHOCYTES # (AUTO) 1.4 X10'3 (1.1-4.8); LYMPHOCYTES % (AUTO) 15.4 % (21-51); MEAN CORPUSCULAR HEMOGLOBIN 28.4 PG (27.0-31.0); MEAN CORPUSCULAR HGB CONC 33.7 g/dL (33.0-36.5); MEAN CORPUSCULAR VOLUME 84.4 FL (78-98); MEAN PLATELET VOLUME 6.6 FL (7.4-10.4); MONOCYTES % (AUTO) 11.1 % (2-12); NEUTROPHILS # (AUTO) 6.3 X10'3 (1.8-7.7); NEUTROPHILS % (AUTO) 70.4 % (42-75); PLATELET COUNT 302 X10'3 (140-440); RED BLOOD COUNT 2.99 X10'6 (4.70-6.10); RED CELL DISTRIBUTION WIDTH 18.6 % (11.5-14.5); WHITE BLOOD COUNT 8.9 X10'3 (4.5-11.0)
[2021-12-10 18:54] LABS: ANION GAP 5 (8-16); BLOOD UREA NITROGEN 15 MG/DL (7-18); CHLORIDE 97 MMOL/L (99-107); GLUCOSE 108 MG/DL (70-104); SODIUM 131 MMOL/L (135-145); TOTAL CARBON DIOXIDE 28.8 MMOL/L (24-32)
[2021-12-10 18:55] LABS: ALBUMIN 1.7 G/DL (3.4-5.0); ALBUMIN/GLOBULIN RATIO 0.3 (1.1-1.5); ALKALINE PHOSPHATASE 90 IU/L (46-116); ASPARTATE AMINO TRANSFERASE 19 U/L (10-37); BILIRUBIN,TOTAL 0.6 MG/DL (0.1-1.0); CALCIUM 7.9 MG/DL (8.5-10.1); TOTAL PROTEIN 6.6 G/DL (6.4-8.2)
[2021-12-10 19:07] LABS: BUN/CREATININE RATIO 3.2 (5.4-32.0); CREATININE 4.65 MG/DL (0.60-1.10); eGFR 13 ML/MIN
[2021-12-10 19:12] LABS: POTASSIUM 2.9 MMOL/L (3.5-5.1)
[2021-12-10 19:14] LABS: ALANINE AMINOTRANSFERASE < 6 U/L (12-78)
[2021-12-10 19:45] LABS: ANISOCYTOSIS 2+; ELLIPTOCYTES FEW; HYPOCHROMASIA 1+; PLATELET ESTIMATE NORMAL; POLYCHROMASIA FEW; TARGET CELLS FEW
--- NOTE | 2021-12-10 20:29 | NUR ---
PT'S CALLED INQUIRING ABOUT CONDITION. PT VERBALIZED APPROVAL FOR TO INFORMED OF CONDITION AND WITH UPDATES. NICA ALCANTARA: [phone]
[2021-12-10] MEDS ORDERED: acetaminophen 325mg tablet PO PRN ×2 (21:40)
[2021-12-10] MEDS ORDERED: magnesium hydroxide 30ml (MOM) UD suspension PO PRN (21:40)
[2021-12-10] MEDS ORDERED: morphine 2 MG/ML inj. syringe IV PRN ×2 (21:40)
[2021-12-10] MEDS ORDERED: ondansetron/PF 4mg/2ml inj IV PRN (21:40)
[2021-12-10] MEDS ORDERED: HYDROcodone/acetaminophen 5mg/325mg tablet PO PRN (21:40)
[2021-12-10] MEDS ORDERED: HYDROcodone/acetaminophen 10/325mg tab PO PRN (21:40)
[2021-12-10] MEDS ORDERED: mag hydrox/Alum hydrox/simeth 30ml oral suspension PO PRN (21:40)
--- NOTE | 2021-12-10 23:09 | NUR ---
FOLLOWED UP WITH DOCTOR REGARDING POTASSIUM REPLACEMENT AND HE PREFACED THAT VIT K+ WOULD NATURALLY RISE ON HIS OWN BECAUSE HE IS A DIALYSIS PT.
[2021-12-10 23:45] VITALS: BP 106/63
[2021-12-11 02:00] VITALS: BP 144/84
[2021-12-11 06:00] VITALS: BP 115/64
[2021-12-11 06:42] LABS: ALBUMIN 1.5 G/DL (3.4-5.0); ANION GAP 8 (8-16); BLOOD UREA NITROGEN 17 MG/DL (7-18); BUN/CREATININE RATIO 3.1 (5.4-32.0); CALCIUM 7.8 MG/DL (8.5-10.1); CHLORIDE 97 MMOL/L (99-107); GLUCOSE 85 MG/DL (70-104); SODIUM 132 MMOL/L (135-145); TOTAL CARBON DIOXIDE 26.7 MMOL/L (24-32); eGFR 11 ML/MIN
[2021-12-11 06:43] LABS: BASOPHILS # (AUTO) 0.1 X10'3 (0-0.2); BASOPHILS % (AUTO) 0.8 % (0-1); EOSINOPHILS # (AUTO) 0.3 X10'3 (0-0.9); EOSINOPHILS % (AUTO) 3.6 % (0-6); HEMATOCRIT 23.8 % (42.0-52.0); HEMOGLOBIN 7.8 g/dl (14.0-17.9); LYMPHOCYTES # (AUTO) 1.4 X10'3 (1.1-4.8); LYMPHOCYTES % (AUTO) 20.5 % (21-51); MEAN CORPUSCULAR HGB CONC 32.8 g/dL (33.0-36.5); MEAN CORPUSCULAR VOLUME 85.5 FL (78-98); MEAN PLATELET VOLUME 7.1 FL (7.4-10.4); MONOCYTES # (AUTO) 0.9 X10'3 (0-0.9); MONOCYTES % (AUTO) 13.1 % (2-12); NEUTROPHILS # (AUTO) 4.3 X10'3 (1.8-7.7); PLATELET COUNT 284 X10'3 (140-440); RED BLOOD COUNT 2.79 X10'6 (4.70-6.10); RED CELL DISTRIBUTION WIDTH 19.2 % (11.5-14.5)
[2021-12-11 06:49] LABS: POTASSIUM 2.9 MMOL/L (3.5-5.1)
--- NOTE | 2021-12-11 06:49 | NUR ---
Change of shift report given to MAIK Gruber. Issues reprioritized. pt stable. no acute complaints at this time
--- NOTE | 2021-12-11 07:06 | NUR ---
Paged Dr. Lyons PCU Yasmani RN ext [phone] RE: Domenic Espinoza. Reporting critical lab this am K 2.9, yesterday was 2.9 too - was not replaced due to renal failure/dialysis patient as per report I got
[2021-12-11 07:17] LABS: ANISOCYTOSIS 2+; PLATELET ESTIMATE NORMAL; POIKILOCYTOSIS FEW; POLYCHROMASIA FEW
[2021-12-11] MEDS: docusate sod 100mg capsule PO SCH ×2 (08:00→18:58)
[2021-12-11] MEDS ORDERED: magnesium 2GM in 50ml NS 50 ML IV PRN (08:05)
[2021-12-11] MEDS ORDERED: magnesium Cl slow-release 64mg tablet PO PRN (08:05)
[2021-12-11] MEDS ORDERED: potassium CL 10mEq/100ml bag 100 ML IV PRN (08:05)
[2021-12-11] MEDS ORDERED: magnesium 4gm in 100ml NS 100 ML IV PRN (08:05)
[2021-12-11] MEDS ORDERED: POTASSIUM BICARB 20meq eff tab 20 MEQ TABLET.EFF PO PRN ×2 (08:05)
[2021-12-11 08:19] LABS: PHOSPHORUS 3.9 MG/DL (2.3-4.5)
--- NOTE | 2021-12-11 09:00 | NUR ---
Per pharmacist, we should reduce to 50% the the K replacement dose for this patient who is a dialysis patient
[2021-12-11] MEDS: heparin, porcine 5000 units/ml vial SQ SCH ×2 (09:24→19:02)
[2021-12-11 09:29] LABS: MAGNESIUM 1.8 MG/DL (1.5-2.4)
[2021-12-11 11:00] VITALS: BP 93/67
--- NOTE | 2021-12-11 11:02 | NUR ---
Dr. Reynoso came by to see patient. I head him telling the patient that the dialysis would be for tomorrow. I let Dr. Reynoso know about K 2.9 yesterday and today. He instructed me to give 40 mEq total only.
[2021-12-11 15:00] VITALS: BP 104/58
[2021-12-11] MEDS ORDERED: POTASSIUM BICARB 20meq eff tab 20 MEQ TABLET.EFF PO ONE (15:45)
[2021-12-11 18:00] VITALS: BP 126/70
[2021-12-11] MEDS ORDERED: K and/or MAG REPLACEMENT MC SCH (20:00)
[2021-12-11] MEDS ORDERED: Melatonin 3mg tablet PO PRN (21:20)
[2021-12-11 22:00] VITALS: BP 123/90
[2021-12-12 02:00] VITALS: BP 116/59
[2021-12-12 06:00] LABS: BASOPHILS # (AUTO) 0.1 X10'3 (0-0.2); EOSINOPHILS # (AUTO) 0.3 X10'3 (0-0.9); EOSINOPHILS % (AUTO) 4.7 % (0-6); HEMOGLOBIN 7.5 g/dl (14.0-17.9); LYMPHOCYTES # (AUTO) 1.4 X10'3 (1.1-4.8); LYMPHOCYTES % (AUTO) 20.5 % (21-51); MEAN CORPUSCULAR HEMOGLOBIN 27.5 PG (27.0-31.0); MEAN CORPUSCULAR HGB CONC 32.6 g/dL (33.0-36.5); MEAN CORPUSCULAR VOLUME 84.5 FL (78-98); MEAN PLATELET VOLUME 6.6 FL (7.4-10.4); MONOCYTES # (AUTO) 0.9 X10'3 (0-0.9); MONOCYTES % (AUTO) 13.5 % (2-12); NEUTROPHILS # (AUTO) 4.1 X10'3 (1.8-7.7); NEUTROPHILS % (AUTO) 60.3 % (42-75); PLATELET COUNT 274 X10'3 (140-440); RED BLOOD COUNT 2.72 X10'6 (4.70-6.10); RED CELL DISTRIBUTION WIDTH 19.3 % (11.5-14.5); WHITE BLOOD COUNT 6.8 X10'3 (4.5-11.0)
[2021-12-12 06:15] LABS: ALBUMIN 1.6 G/DL (3.4-5.0); ANION GAP 8 (8-16); BLOOD UREA NITROGEN 21 MG/DL (7-18); BUN/CREATININE RATIO 3.4 (5.4-32.0); CALCIUM 7.7 MG/DL (8.5-10.1); CHLORIDE 95 MMOL/L (99-107); GLUCOSE 90 MG/DL (70-104); MAGNESIUM 1.7 MG/DL (1.5-2.4); PHOSPHORUS 4.1 MG/DL (2.3-4.5); POTASSIUM 3.4 MMOL/L (3.5-5.1); SODIUM 129 MMOL/L (135-145); TOTAL CARBON DIOXIDE 26.3 MMOL/L (24-32); eGFR 9 ML/MIN
--- NOTE | 2021-12-12 06:28 | NUR ---
Change of shift report given to MAIK Read. Issues reprioritized. Pt stable. No acute complaints.
[2021-12-12] MEDS ORDERED: FURO20TA4 PO (06:44)
[2021-12-12 07:00] VITALS: BP 92/52
[2021-12-12 07:07] LABS: ANISOCYTOSIS 2+; ELLIPTOCYTES FEW; PLATELET ESTIMATE NORMAL; TARGET CELLS FEW; TEAR DROP CELLS 1+
[2021-12-12] MEDS: docusate sod 100mg capsule PO SCH ×2 (07:37→19:31)
[2021-12-12] MEDS: heparin, porcine 5000 units/ml vial SQ SCH ×2 (07:37→19:36)
--- NOTE | 2021-12-12 07:38 | NUR ---
Holding Heparin due to scheduled Dialysis
--- NOTE | 2021-12-12 07:38 | NUR ---
Patient in room PCU 3025. I have received report from Ana PLEITEZ and had the opportunity to ask questions and assume patient care.
[2021-12-12 11:00] VITALS: BP 109/54
[2021-12-12] MEDS ORDERED: magnesium 2GM in 50ml NS 50 ML IV PRN (14:10)
[2021-12-12] MEDS ORDERED: potassium CL 10mEq/100ml bag 100 ML IV PRN (14:10)
[2021-12-12] MEDS ORDERED: magnesium Cl slow-release 64mg tablet PO PRN (14:10)
[2021-12-12] MEDS ORDERED: magnesium 4gm in 100ml NS 100 ML IV PRN (14:10)
[2021-12-12] MEDS ORDERED: POTASSIUM BICARB 20meq eff tab 20 MEQ TABLET.EFF PO PRN ×2 (14:10)
[2021-12-12 15:00] VITALS: BP 105/60
[2021-12-12 15:36] LABS: MAGNESIUM 1.7 MG/DL (1.5-2.4); POTASSIUM 3.4 MMOL/L (3.5-5.1)
[2021-12-12 18:00] VITALS: BP 111/67
--- NOTE | 2021-12-12 18:35 | NUR ---
Problems reprioritized. Patient report given, questions answered & plan of care reviewed with Jackson PLEITEZ.
[2021-12-12] MEDS: K and/or MAG REPLACEMENT MC SCH (19:30)
[2021-12-12 22:00] VITALS: BP 106/61
[2021-12-13 02:00] VITALS: BP 106/56
--- NOTE | 2021-12-13 06:11 | NUR ---
Change of shift report given to MAIK Read. Issues reprioritized. No acute complaints. pt stable
[2021-12-13 06:27] LABS: BASOPHILS % (AUTO) 0.7 % (0-1); EOSINOPHILS # (AUTO) 0.3 X10'3 (0-0.9); EOSINOPHILS % (AUTO) 4.6 % (0-6); HEMOGLOBIN 7.8 g/dl (14.0-17.9); LYMPHOCYTES # (AUTO) 1.3 X10'3 (1.1-4.8); MEAN CORPUSCULAR HEMOGLOBIN 28.2 PG (27.0-31.0); MEAN CORPUSCULAR HGB CONC 32.5 g/dL (33.0-36.5); MEAN CORPUSCULAR VOLUME 86.7 FL (78-98); MONOCYTES # (AUTO) 0.8 X10'3 (0-0.9); MONOCYTES % (AUTO) 12.8 % (2-12); NEUTROPHILS # (AUTO) 3.8 X10'3 (1.8-7.7); NEUTROPHILS % (AUTO) 60.9 % (42-75); PLATELET COUNT 278 X10'3 (140-440); RED BLOOD COUNT 2.77 X10'6 (4.70-6.10); RED CELL DISTRIBUTION WIDTH 18.7 % (11.5-14.5); WHITE BLOOD COUNT 6.3 X10'3 (4.5-11.0)
[2021-12-13 06:35] LABS: ALBUMIN 1.6 G/DL (3.4-5.0); ANION GAP 9 (8-16); BLOOD UREA NITROGEN 27 MG/DL (7-18); BUN/CREATININE RATIO 3.8 (5.4-32.0); CALCIUM 7.8 MG/DL (8.5-10.1); CHLORIDE 92 MMOL/L (99-107); CREATININE 7.06 MG/DL (0.60-1.10); GLUCOSE 85 MG/DL (70-104); MAGNESIUM 1.7 MG/DL (1.5-2.4); PHOSPHORUS 4.6 MG/DL (2.3-4.5); POTASSIUM 3.5 MMOL/L (3.5-5.1); SODIUM 125 MMOL/L (135-145); TOTAL CARBON DIOXIDE 24.5 MMOL/L (24-32); eGFR 8 ML/MIN
[2021-12-13 07:00] VITALS: BP 116/72
[2021-12-13] MEDS: docusate sod 100mg capsule PO SCH (07:24)
[2021-12-13] MEDS: heparin, porcine 5000 units/ml vial SQ SCH ×2 (07:25→20:00)
[2021-12-13 10:43] VITALS: BP 91/55
[2021-12-13 11:00] VITALS: BP 105/83
[2021-12-13] MEDS ORDERED: EPOETIN ALFA-EPBX 20,000 UNIT/ML 1 ML MDV IV ONE (11:05)
[2021-12-13] MEDS ORDERED: heparin 1,000unit/ml 10ml vial 10 ML IV ONE (11:05)
[2021-12-13] MEDS ORDERED: normal saline 1000ml 250 ML IV PRN (11:05)
[2021-12-13] MEDS ORDERED: heparin 1,000 units/ml 10ml inj HE ONE ×2 (13:15)
--- NOTE | 2021-12-13 17:12 | NUR ---
Patient called and said she spoke with a "Nurse" here earlier today that said her is getting discharged after dialysis today. I told her i am her husbands nurse and that i didn't speak with her. She said the nurse she spoke with also told her they would arrange transportation for patient, but she could not remember said nurses name. I assumed if transportation was talked about that maybe it was Jennifer or a therapeutic case manager, but was unable to find any notes in patients chart. Dr Coleman states patient will discharge tomorrow in his progress notes. notified and states she will come and get him in the morning.
[2021-12-13] MEDS: K and/or MAG REPLACEMENT MC SCH ×2 (18:25→20:00)
[2021-12-13 18:30] VITALS: BP 96/71
[2021-12-13 22:00] VITALS: BP 117/63
[2021-12-14 06:09] LABS: ALBUMIN 1.5 G/DL (3.4-5.0); ANION GAP 5 (8-16); BLOOD UREA NITROGEN 16 MG/DL (7-18); BUN/CREATININE RATIO 3.2 (5.4-32.0); CALCIUM 7.8 MG/DL (8.5-10.1); CHLORIDE 95 MMOL/L (99-107); CREATININE 4.94 MG/DL (0.60-1.10); GLUCOSE 88 MG/DL (70-104); MAGNESIUM 1.7 MG/DL (1.5-2.4); PHOSPHORUS 3.7 MG/DL (2.3-4.5); POTASSIUM 3.5 MMOL/L (3.5-5.1); SODIUM 127 MMOL/L (135-145); TOTAL CARBON DIOXIDE 27.4 MMOL/L (24-32); eGFR 12 ML/MIN
[2021-12-14 06:11] LABS: BASOPHILS # (AUTO) 0.1 X10'3 (0-0.2); BASOPHILS % (AUTO) 0.8 % (0-1); EOSINOPHILS # (AUTO) 0.2 X10'3 (0-0.9); EOSINOPHILS % (AUTO) 2.7 % (0-6); HEMATOCRIT 23.3 % (42.0-52.0); HEMOGLOBIN 7.7 g/dl (14.0-17.9); LYMPHOCYTES # (AUTO) 1.2 X10'3 (1.1-4.8); LYMPHOCYTES % (AUTO) 16.8 % (21-51); MEAN CORPUSCULAR HGB CONC 32.8 g/dL (33.0-36.5); MEAN CORPUSCULAR VOLUME 85.4 FL (78-98); MEAN PLATELET VOLUME 6.9 FL (7.4-10.4); MONOCYTES # (AUTO) 1.1 X10'3 (0-0.9); MONOCYTES % (AUTO) 14.6 % (2-12); NEUTROPHILS # (AUTO) 4.7 X10'3 (1.8-7.7); NEUTROPHILS % (AUTO) 65.1 % (42-75); PLATELET COUNT 284 X10'3 (140-440); RED BLOOD COUNT 2.73 X10'6 (4.70-6.10); WHITE BLOOD COUNT 7.2 X10'3 (4.5-11.0)
--- NOTE | 2021-12-14 06:26 | NUR ---
Problems reprioritized. Patient report given, questions answered & plan of care reviewed with Roro. Addendum: 12/14/21 at 06 by Juanito Mejía RN Amended: Links added.
[2021-12-14] MEDS: K and/or MAG REPLACEMENT MC SCH (06:50)
[2021-12-14] MEDS: heparin, porcine 5000 units/ml vial SQ SCH (08:17)
--- NOTE | 2021-12-14 08:27 | NUR ---
Initial: Pt admitted w/ ESRD on HD, dyspnea, ESLD, and anemia per EMR. Currently on Renal diet w/ mostly 100% intake of meals though only partially meeting est protein needs. Will provide double protein WL to help meet needs. May consider liberalizing to Regular diet given some electrolytes being low. Recommend routine thiamine, folic acid, MVI given EtOH hx if MD agreeable. LBM 12/13. Will continue to monitor. Recs: 1. Continue Renal diet as tolerated 2. double protein WL 3. Routine thiamine, folic acid, MVI given EtOH hx if MD agreeable 4. Bowel care per rx 5. Scaled wts w/ HD Addendum: 12/14/21 at [address] Amended: Links added.
[2021-12-14 09:28] LABS: HBSAG SCREEN Negative (Negative)
--- NOTE | 2021-12-14 09:41 | NUR ---
O2 Sat at rest on room air:_84__% If below 89%: Recovery O2 Sat at rest on __2_LPM:_94__%:___% via Nasal Cannula (mask/nasal cannula, etc..) No further documentation is necessary. If O2 Sat did not drop below 89% on room air,ambulate patient on room air. O2 Sat while ambulating on room air:___% Recovery O2 Sat while ambulating on ___LPM:___% No further documentation is necessary. If patient does not drop below 89% while ambulating, he/she does not qualify for home O2.
[2021-12-14 12:21] VITALS: BP 105/50
--- NOTE | 2021-12-14 13:02 | NUR ---
Discharge paperwork reviewed and patients questions answered. IV removed from left AC, catheter intact. Patient wheeled down to lobby to wait for transportation. Patient in stable condition upon discharge.
== END 2021-12-14 12:52 | disposition home or self-care (01) | DRG 432 ==
LOC: ER 17:24 → ED HOLD 21:41 → PCU 3S 23:30
PROVIDERS: ADMIT Internal Medicine; ATTEND Family Medicine
PROC: 5A1D70Z Performance of Urinary Filtration, Intermittent, Less than 6 Hours Per Day (ICD-10-PCS; 2021-12-10)
PROC: 5A1D70Z Performance of Urinary Filtration, Intermittent, Less than 6 Hours Per Day (ICD-10-PCS; principal; 2021-12-13)
DX: K70.31 Alcoholic cirrhosis of liver with ascites (principal); N18.6 End stage renal disease; E87.1 Hypo-osmolality and hyponatremia; K70.40 Alcoholic hepatic failure without coma; Z20.822 Contact with and (suspected) exposure to COVID-19; D63.8 Anemia in other chronic diseases classified elsewhere; I50.9 Heart failure, unspecified; F17.210 Nicotine dependence, cigarettes, uncomplicated; J44.9 Chronic obstructive pulmonary disease, unspecified; I95.9 Hypotension, unspecified; E83.51 Hypocalcemia; R14.0 Abdominal distension (gaseous); E87.6 Hypokalemia; E88.09 Other disorders of plasma-protein metabolism, not elsewhere classified; Z82.5 Family history of asthma and other chronic lower respiratory diseases; Z99.2 Dependence on renal dialysis; Z83.3 Family history of diabetes mellitus; Z79.899 Other long term (current) drug therapy; Z71.6 Tobacco abuse counseling
CPT/HCPCS: 36415; 71045; 76705; 80048; 80053; 83735; 83880; 84100; 84132; 84484; 85008; 85025; 87081; 87340; 93005; 99285; G0257; G0378; J1644; J2405; Q4081